=== PATIENT | male | born 1960 | race Caucasian/White ===

== ENCOUNTER 2016-12-02 15:43 | Emergency (ER) | payer BC ==
[2016-12-02 15:45] VITALS: BP 171/97; PULSE 94; RESP 24; TEMP 98; O2SAT 96
[2016-12-02 16:29] VITALS: BP 176/92; PULSE 88; RESP 28; O2SAT 96
[2016-12-02 16:51] VITALS: BP 184/94; PULSE 97; RESP 22; TEMP 98.4; O2SAT 98
[2016-12-02 16:59] VITALS: RESP 22; O2SAT 98
[2016-12-02] MEDS ORDERED: RESP: ALBUTEROL 2.5 MG/IPRATROPIUM 0.5 MG NEB (SCH) INH ONE (17:00)
[2016-12-02] MEDS ORDERED: methylPREDNISolone SOD SUCC 125 MG/2 ML VIAL IVP ONE (17:00)
--- NOTE | 2016-12-02 17:27 | PD ---
HPI Chief Complaint: Respiratory Distress Time Seen by Provider: 17:23 Travel History International Travel<30 days: No Contact w/Intl Traveler<30days: No Traveled to known affect area: No History of Present Illness HPI 55-year-old male that presents to the ED for evaluation of shortness of breath and cough. Per patient she's had symptoms since 14 November. Per patient history of having cough and runny nose on that time and he was seen by his doctor who prescribed antibiotics. Per patient he did not feel better in 2 days later he went to an urgent care where he was prescribed a different antibiotic and given some shots to make him feel improved but he states that for the past couple of days his symptoms have actually worsened and that is why he decided to come here. He states that he finished 2 rounds of antibiotics already with no relief. He denies any abdominal pain, nausea or vomiting. He states compliance with his medications and he states that he only takes a blood pressure medication. He denies using any inhalers at home. He has a remote history of smoking and states that he quit about 10 years ago. He states having some chest discomfort for more with deep breaths and with cough. Per patient and shortness of breath is exertional and gets worse when she has bad coughing spells. He has no allergies to medication. He has not seen his PCP these week. He denies any other medical problems at this time. Denies any sore throat. He does state having some congestion and states the most of his cough is dry. Not really productive PFSH Past Medical History High Cholesterol: Yes Diabetes: No Hiatal Hernia: Yes Hypertension: Yes Tetanus Vaccination: > 5 Years Influenza Vaccination: No Past Surgical History Other Surgery: Yes (HERNIA REPAIR AND CYST REMOVAL) Social History Alcohol Use: Yes (OCCAS) Tobacco Use: No Substance Use: No Allergies-Medications (Allergen,Severity, Reaction): Coded Allergies: No Known Allergies (Unverified , 12/02/16) Reported Meds & Prescriptions Reported Meds & Active Scripts Active Nebulizer 1 Mis Mis 1 Ea .ROUTE DIRECTED Albuterol Neb (Albuterol Sulfate) 2.5 Mg/0.5 Ml Neb 2.5 Mg NEB TID NEB PRN Note: The Albuterol Sulfate Inhalation Solution is concentrated and must be diluted. Read complete instructions carefully before using. Prednisone 20 Mg Tab 20 Mg PO BID Levaquin (Levofloxacin) 750 Mg Tab 750 Mg PO DAILY Review of Systems General / Constitutional: No: Fever, Chills, Weight Gain, Weight Loss, Other Eyes: No: Diploplia, Blurred Vision, Photophobia, Drainage, Redness, Foreign Body Sensation, Pain, Tearing, Blind Spots, Visual changes, Blindness, Other HENT: No: Headaches, Vertigo, Lightheadedness, Sore Throat, Rhinitis, Rhinorrhea, Congestion, Nosebleed, Neck Stiffness, Neck Pain, Masses, Gingival Bleeding, Dental Difficulties, Ear Discharge, Earache, Other Cardiovascular: Positive: Chest Pain or Discomfort Respiratory: Positive: Cough, Shortness of Breath, Wheezing, No: Sneezing, Orthopnea, Hemoptysis, Stridor, Night Sweats, Pleuritic Pain, Other Gastrointestinal: No: Nausea, Vomiting, Diarrhea, Abdominal Pain, Hematemesis, Hematochezia, Constipation, Changes in Bowel Habits, Indigestion, Dysphagia, Loss of Appetite, Other Genitourinary: No: Urgency, Frequency, Dysuria, Nocturia, Hematuria, Decreased Urinary Output, Oliguria, Hesitancy, Dribbling, Incontinence, Pelvic Pain, Flank Pain, Dyspareunia, Discharge, Dysmenorrhea, Menorrhagia, Metorrhagia, Vaginal Bleeding, Other Musculoskeletal: No: Myalgias, Arthralgias, Limited ROM, Weakness, Cramping, Edema, Pain, Atrophy, Other Skin: No Rash, No Itching, No Dryness, No Lumps, No Hives, No Change in Pigmentation, No Change in nails, No Alopecia, No Lesions, No Breast Lumps, No Breast Tenderness, No Breast Swelling, No Other Psychiatric: No: Anxiety, Depression, Suicidal Ideations, Disorder of Thought, Mood Disorder, Substance Abuse, Homicidal Ideation, Other Endocrine: No: Heat Intolerance, Cold Intolerance, Polyuria, Polydipsia, Other Hematologic/Lymphatic: No: Easy Bruising, Lymph Node Enlargement, Other Physical Exam Narrative GENERAL: Well-nourished, well-developed patient in no apparent distress. SKIN: Warm and dry. HEAD: Atraumatic. Normocephalic. EYES: Pupils equal and round reactive to light and accommodation. No scleral icterus. No injection or drainage. ENT: No nasal bleeding or discharge. Mucous membranes pink and moist. TMs are clear with no sign of infection or perforation. No mastoid tenderness. Ear canals are intact bilaterally. No lymphadenopathy. Nostril mucosa is red and moist with clear mucus noted. No sinus tenderness to palpation noted. Tonsils are not enlarged or swollen. No ulvua Deviation. Tongue is midline. NECK: Trachea midline. No JVD. No meningeal signs noted CARDIOVASCULAR: Regular rate and rhythm. RESPIRATORY: No accessory muscle use. Mild rales in the lower lung steel.. Breath sounds equal bilaterally. GASTROINTESTINAL: Abdomen soft, non-tender, nondistended. Hepatic and splenic margins not palpable. MUSCULOSKELETAL: Extremities without clubbing, cyanosis, or edema. No obvious deformities. NEUROLOGICAL: Awake and alert. No obvious cranial nerve deficits. Motor grossly within normal limits. Five out of 5 muscle strength in the arms and legs. Normal speech. PSYCHIATRIC: Appropriate mood and affect; insight and judgment normal. Data Data Last Documented VS Vital Signs Date Time Temp Pulse Resp B/P Pulse Ox O2 Delivery O2 Flow Rate FiO2 12/02/16 16:59 22 98 Room Air 12/02/16 16:51 92 12/02/16 16:51 98.4 184/94 Orders Electrocardiogram (12/02/16 16:56) Basic Metabolic Panel (Bmp) (12/02/16 16:56) Complete Blood Count With Diff (12/02/16 16:56) Chest, Single Ap (12/02/16 16:56) Iv Access Insert/Monitor (12/02/16 16:56) Oximetry (12/02/16 16:56) Methylprednisolone So Succ Inj (Solumedr (12/02/16 17:00) Albuterol-Ipratropium Neb (Duoneb Neb) (12/02/16 17:00) Influenzae A/B Antigen (12/02/16 16:58) Labs Laboratory Tests Test 12/02/16 17:05 White Blood Count 10.7 TH/MM3 Red Blood Count 3.99 MIL/MM3 Hemoglobin 12.5 GM/DL Hematocrit 37.0 % Mean Corpuscular Volume 92.7 FL Mean Corpuscular Hemoglobin 31.4 PG Mean Corpuscular Hemoglobin 33.9 % Concent Red Cell Distribution Width 12.0 % Platelet Count 252 TH/MM3 Mean Platelet Volume 8.3 FL Neutrophils (%) (Auto) 63.2 % Lymphocytes (%) (Auto) 23.4 % Monocytes (%) (Auto) 11.4 % Eosinophils (%) (Auto) 1.7 % Basophils (%) (Auto) 0.3 % Neutrophils # (Auto) 6.8 TH/MM3 Lymphocytes # (Auto) 2.5 TH/MM3 Monocytes # (Auto) 1.2 TH/MM3 Eosinophils # (Auto) 0.2 TH/MM3 Basophils # (Auto) 0.0 TH/MM3 CBC Comment DIFF FINAL Differential Comment Sodium Level 141 MEQ/L Potassium Level 4.0 MEQ/L Chloride Level 107 MEQ/L Carbon Dioxide Level 28.5 MEQ/L Anion Gap 6 MEQ/L Blood Urea Nitrogen 14 MG/DL Creatinine 1.19 MG/DL Estimat Glomerular Filtration 64 ML/MIN Rate Random Glucose 104 MG/DL Calcium Level 8.9 MG/DL MDM Medical Decision Making Medical Screen Exam Complete: Yes Emergency Medical Condition: Yes Medical Record Reviewed: Yes Interpretation(s) CBC & BMP Diagram 12/02/16 17:05 Last Impressions Chest X-Ray 12/02/16 1656 Signed Impressions: Service Date/Time: Sunday, December 02, 2016 17:10 - CONCLUSION: 1. Minimal basilar atelectasis. Adrián Squires MD Influenza negative Differential Diagnosis Bronchitis versus pneumonia versus influenza versus chronic cough versus chest discomfort Narrative Course 55-year-old male that presents to the ED for evaluation of cough and shortness of breath. Patient was properly examined and was found to have signs and symptoms consistent appears to be possible bronchitis. Patient will be given breathing treatment, labs will be drawn and chest x-ray will be done as well as with this. Labs and imaging showed no sign of acute disease other than what appears to be bronchitis. Patient was reassured. At this time I recommend trial of Levaquin, prednisone, nebulizer machine as patient already has inhalers at home. Patient was also given prescription for hydrocodone syrup. Told to follow closely with PCP. See ED for any worsening symptoms. Given note for work. Diagnosis Primary Impression: Bronchitis Patient Instructions: General Instructions Departure Forms: Tests/Procedures, Work Release Enter return to work date: Dec 08, 2016 Additional Instructions: Motrin and Tylenol for pain and fever. You can use [id number] antihistamine as well as well as Mucinex as needed for runny nose and congestion. Cough drops for cough as needed. Drink plenty of fluids. Follow-up with PCP this week See ED for worsening symptoms. Med/Other Pt SpecificInfo: Prescription(s) given Scripts Nebulizer 1 Mis Mis #1 EA .ROUTE DIRECTED Ref 0 Prov:Blu Bennett MD 12/02/16 Albuterol Neb 2.5 Mg/0.5 Ml Neb2.5 Mg NEB TID NEB PRN (SHORTNESS OF BREATH) #90 NEBULE Ref 0 Note: The Albuterol Sulfate Inhalation Solution is concentrated and must be diluted. Read complete instructions carefully before using. Prov:Blu Bennett MD 12/02/16 Prednisone 20 Mg Tab20 Mg PO BID #10 TAB Prov:Blu Bennett MD 12/02/16 Levofloxacin (Levaquin)750 Mg Mrn698 Mg PO DAILY #7 TAB Ref 0 Prov:Blu Bennett MD 12/02/16 Disposition: 01 DISCHARGE HOME Condition: Stable Adebayo Garza Dec 02, 2016 17:27
[2016-12-02 17:30] LABS: AUTOMATED NEUTROPHIL # 6.8 TH/MM3 (1.8-7.7); BASOPHIL % 0.3 % (0.0-2.0); EOSINOPHIL # 0.2 TH/MM3 (0-0.4); EOSINOPHIL % 1.7 % (0.0-4.0); HEMO FLAGS DIFF FINAL; LYMPH % 23.4 % (9.0-44.0); LYMPHOCYTE # 2.5 TH/MM3 (1.0-4.8); MEAN CELL VOLUME 92.7 FL (80.0-100.0); MEAN CORPUSCULAR HEMOGLOBIN 31.4 PG (27.0-34.0); MEAN CORPUSCULAR HGB CONC 33.9 % (32.0-36.0); MONO % 11.4 % (0.0-8.0); NEUT % 63.2 % (16.0-70.0); PLATELET COUNT 252 TH/MM3 (150-450); RED BLOOD COUNT 3.99 MIL/MM3 (4.50-5.90); WHITE BLOOD COUNT 10.7 TH/MM3 (4.0-11.0)
--- NOTE | 2016-12-02 17:37 | RADRPT ---
EXAM DATE/TIME: 12/02/2016 17:10 [facility] COMPARISON: No previous studies available for comparison. INDICATIONS : Cough and wheezing for the past few days. MEDICAL HISTORY : None. SURGICAL HISTORY : None. ENCOUNTER: Initial ACUITY: 3 days PAIN SCORE: 5/10 LOCATION: Bilateral chest FINDINGS: Minimal basal atelectasis. No focal consolidation or effusion. Heart size mildly enlarged. No pneumot horax. CONCLUSION: 1. Minimal basilar atelectasis. Adrián Squires MD on December 02, 2016 at 17:35 Board Certified Radiologist. This report was verified electronically.
[2016-12-02 18:06] LABS: BICARBONATE 28.5 MEQ/L (21.0-32.0)
[2016-12-02] MEDS ORDERED: LEVA750T PO (18:20)
[2016-12-02] MEDS ORDERED: ALBU.5I NEB (18:20)
[2016-12-02] MEDS ORDERED: PRED20 PO (18:20)
[2016-12-02] MEDS ORDERED: NEBULIZER1 MI1 (18:20)
[2016-12-02] MEDS ORDERED: HYDR1SOL20 PO (18:26)
[2016-12-02 19:16] VITALS: BP 167/86; PULSE 92; RESP 20; O2SAT 94
--- NOTE | 2016-12-03 14:50 | EKG ---
Date Performed: 12/02/2016 Time Performed: 17:31:06 PTAGE: 55 years EKG: Sinus rhythm NONSPECIFIC T-WAVE ABNORMALITY BORDERLINE ECG NO PREVIOUS TRACING DOCTOR: Toney Fulton Interpretating Date/Time 12/03/2016 14:47:14
== END 2016-12-02 19:25 | disposition home or self-care (01) ==
LOC: NEPE 15:43
DX: J40 Bronchitis, not specified as acute or chronic (principal); R94.31 Abnormal electrocardiogram [ECG] [EKG]; I10 Essential (primary) hypertension; E78.00 Pure hypercholesterolemia, unspecified; Z87.891 Personal history of nicotine dependence
CPT/HCPCS: 71010; 80048; 85025; 87804; 93005; 94664; 96374; 99285; J2930

== ENCOUNTER 2017-11-16 19:32 | Inpatient (IN) | payer BC ==
[~2017-11-16] VITALS: Ht 170.2 cm; Wt 80.5 kg
[~2017-11-16 19:32] MED LIST: INDO25CA PO; PRED20 PO
[2017-11-16 20:40] VITALS: BP 146/97; PULSE 124; RESP 12; TEMP 99; O2SAT 97
[2017-11-16] MEDS ORDERED: blood pressure (21:53)
[2017-11-16] MEDS ORDERED: LOVA10TA PO (21:53)
--- NOTE | 2017-11-16 22:11 | PD ---
HPI Chief Complaint: Respiratory Symptoms Time Seen by Provider: 21:51 Travel History International Travel<30 days: No Contact w/Intl Traveler<30days: No Traveled to known affect area: No History of Present Illness HPI 56-year-old male complains of weight gain, the whole body swelling, coughing congestion and shortness of breath. Patient states the symptoms started about 2 weeks ago. Patient states that he status post left knee arthroscopic surgery 2 weeks ago for meniscus injury. Patient states that he has increasing weight gain and body swelling up for the past 2 weeks. Patient states that the cough is persistent dry cough and was at night. Patient has aching headache. Patient denies any neck pain. Patient denies any chest pain. Patient states he has shortness of breath. Patient states that he has abdominal bloating. Patient denies any dysuria frequency. Patient denies any nausea vomiting diarrhea. Patient states that he has a couple drinks of alcohol a day. Patient denies any history of hepatitis. Patient has history hypertension and hyperlipidemia. PFSH Past Medical History High Cholesterol: Yes Diabetes: No Hiatal Hernia: Yes Hypertension: Yes Immunizations Current: No Past Surgical History Other Surgery: Yes (HERNIA REPAIR AND CYST REMOVAL) Social History Alcohol Use: Yes (OCCAS) Tobacco Use: No Substance Use: No Allergies-Medications (Allergen,Severity, Reaction): Coded Allergies: No Known Allergies (Unverified Allergy, Unknown, 11/16/17) Reported Meds & Prescriptions Reported Meds & Active Scripts Active Reported [blood pressure] Lovastatin 10 Mg Tab 10 Mg PO DAILY Review of Systems General / Constitutional: No: Fever Eyes: No: Visual changes HENT: Positive: Headaches Cardiovascular: No: Chest Pain or Discomfort Respiratory: Positive: Cough, Shortness of Breath Gastrointestinal: Positive: Abdominal Pain Genitourinary: No: Dysuria Musculoskeletal: No: Pain Skin: No Rash Neurologic: No: Weakness Psychiatric: No: Depression Endocrine: No: Polydipsia Hematologic/Lymphatic: No: Easy Bruising Physical Exam Narrative GENERAL: Well-nourished, well-developed patient. SKIN: Focused skin assessment warm/dry. HEAD: Normocephalic. EYES: No scleral icterus. No injection or drainage. NECK: Supple, trachea midline. No JVD or lymphadenopathy. CARDIOVASCULAR: Regular rate and rhythm without murmurs, gallops, or rubs. RESPIRATORY: Breath sounds equal bilaterally. No accessory muscle use. Few rhonchi at the bases. GASTROINTESTINAL: Abdomen soft, distended. Active bowel sounds. Patient has mild to moderate tenderness in palpation right upper quadrant of the abdomen. No rebound tenderness. No mass. MUSCULOSKELETAL: No cyanosis. Patient had +1-+2 pitting edema lower extremity. BACK: Nontender without obvious deformity. No CVA tenderness. Neurologic exam normal. Data Data Last Documented VS Vital Signs Date Time Temp Pulse Resp B/P (MAP) Pulse Ox O2 Delivery O2 Flow Rate FiO2 11/16/17 23:06 20 11/16/17 20:40 99.0 124 97 Orders Orders Electrocardiogram (11/16/17 21:58) Complete Blood Count With Diff (11/16/17 21:58) Comprehensive Metabolic Panel (11/16/17 21:58) B-Type Natriuretic Peptide (11/16/17 21:58) Prothrombin Time / Inr (Pt) (11/16/17 21:58) Act Partial Throm Time (Ptt) (11/16/17 21:58) Lipase (11/16/17 21:58) Urinalysis - C+S If Indicated (11/16/17 21:58) Ammonia (11/16/17 21:58) Thyroid Stimulating Hormone (11/16/17 21:58) Chest, Single Ap (11/16/17 21:58) Iv Access Insert/Monitor (11/16/17 21:58) Ecg Monitoring (11/16/17 21:58) Oximetry (11/16/17 21:58) Ct Abd/Pel W Iv Contrast(Rout) (11/16/17 23:03) Ct Pulmonary Angiogram (11/16/17 23:03) Iohexol 350 Inj (Omnipaque 350 Inj) (11/17/17 00:24) Sodium Chlor 0.9% 1000 Ml Inj (Ns 1000 M (11/17/17 01:00) Piperacil-Tazo 3.375 Gm Premix (Zosyn 3. (11/17/17 01:00) Sodium Chloride 0.9% Flush (Ns Flush) (11/17/17 01:15) Famotidine Inj (Pepcid Inj) (11/17/17 01:15) Us Abdomen Gallbladder (11/17/17 01:25) Consult General Surgery (11/17/17 ) Admit Order (Ed Use Only) (11/17/17 01:40) Labs Laboratory Tests Test 11/16/17 22:10 White Blood Count 10.8 TH/MM3 Red Blood Count 4.30 MIL/MM3 Hemoglobin 13.6 GM/DL Hematocrit 40.3 % Mean Corpuscular Volume 93.6 FL Mean Corpuscular Hemoglobin 31.6 PG Mean Corpuscular Hemoglobin Concent 33.7 % Red Cell Distribution Width 12.6 % Platelet Count 189 TH/MM3 Mean Platelet Volume 8.4 FL Neutrophils (%) (Auto) 62.8 % Lymphocytes (%) (Auto) 24.8 % Monocytes (%) (Auto) 9.6 % Eosinophils (%) (Auto) 2.1 % Basophils (%) (Auto) 0.7 % Neutrophils # (Auto) 6.8 TH/MM3 Lymphocytes # (Auto) 2.7 TH/MM3 Monocytes # (Auto) 1.0 TH/MM3 Eosinophils # (Auto) 0.2 TH/MM3 Basophils # (Auto) 0.1 TH/MM3 CBC Comment DIFF FINAL Differential Comment Prothrombin Time 12.0 SEC Prothromb Time International Ratio 1.2 RATIO Activated Partial Thromboplast Time 25.0 SEC Blood Urea Nitrogen 19 MG/DL Creatinine 1.02 MG/DL Random Glucose 88 MG/DL Total Protein 7.6 GM/DL Albumin 3.9 GM/DL Calcium Level 8.7 MG/DL Alkaline Phosphatase 124 U/L Aspartate Amino Transf (AST/SGOT) 30 U/L Alanine Aminotransferase (ALT/SGPT) 42 U/L Total Bilirubin 0.9 MG/DL Sodium Level 142 MEQ/L Potassium Level 4.3 MEQ/L Chloride Level 108 MEQ/L Carbon Dioxide Level 26.8 MEQ/L Anion Gap 7 MEQ/L Estimat Glomerular Filtration Rate 76 ML/MIN Ammonia 31 MCMOL/L B-Type Natriuretic Peptide 98 PG/ML Lipase 159 U/L Thyroid Stimulating Hormone 3rd Gen 2.670 uIU/ML MDM Medical Decision Making Medical Screen Exam Complete: Yes Emergency Medical Condition: Yes Interpretation(s) 23:09 PM. EKG shows atrial fibrillation with rate 96. Chest x-ray shows no acute consolidation. CBC within normal limits. CMP with BUN of 19. Alkaline phosphatase 124. BNP 98. Ammonia 31. TSH normal. Differential Diagnosis Differential diagnosis including hepatitis, CHF, fluid overload, bronchitis, pneumonia, PE. Narrative Course 56-year-old male with generalized edema, weight gain, coughing congestion, shortness of breath. On examination patient does have right upper quadrant abdominal pain. Normal saline solution 70 cc an hour. Pepcid 20 mg IV. Zosyn 3.375 g IV. I spoke with Dr. Wu, general surgeon market intelligence consultant. Spoke with Dr. Proctor. Will admit to medical service. Diagnosis Primary Impression: Acute cholecystitis Viral Bach MD Nov 16, 2017 22:11
[2017-11-16 22:22] LABS: AUTOMATED NEUTROPHIL # 6.8 TH/MM3 (1.8-7.7); BASOPHIL # 0.1 TH/MM3 (0-0.2); BASOPHIL % 0.7 % (0.0-2.0); EOSINOPHIL # 0.2 TH/MM3 (0-0.4); EOSINOPHIL % 2.1 % (0.0-4.0); HEMATOCRIT 40.3 % (39.0-51.0); HEMOGLOBIN 13.6 GM/DL (13.0-17.0); LYMPH % 24.8 % (9.0-44.0); LYMPHOCYTE # 2.7 TH/MM3 (1.0-4.8); MEAN CELL VOLUME 93.6 FL (80.0-100.0); MEAN CORPUSCULAR HEMOGLOBIN 31.6 PG (27.0-34.0); MEAN CORPUSCULAR HGB CONC 33.7 % (32.0-36.0); MEAN PLATELET VOLUME 8.4 FL (7.0-11.0); MONO % 9.6 % (0.0-8.0); NEUT % 62.8 % (16.0-70.0); PLATELET COUNT 189 TH/MM3 (150-450); RED CELL DISTRIBUTION WIDTH 12.6 % (11.6-17.2); WHITE BLOOD COUNT 10.8 TH/MM3 (4.0-11.0)
[2017-11-16 22:33] LABS: INTERNATIONAL NORMALIZED RATIO 1.2 RATIO
[2017-11-16 22:37] LABS: ALBUMIN 3.9 GM/DL (3.4-5.0); AST (GOT) 30 U/L (15-37); BICARBONATE 26.8 MEQ/L (21.0-32.0); BLOOD UREA NITROGEN 19 MG/DL (7-18); CALCIUM 8.7 MG/DL (8.5-10.1); CHLORIDE 108 MEQ/L (98-107); CREATININE 1.02 MG/DL (0.60-1.30); GLOMERULAR FILTRATION RATE 76 ML/MIN (>89); GLUCOSE,RANDOM 88 MG/DL (74-106); SODIUM (NA) 142 MEQ/L (136-145)
[2017-11-16 22:38] LABS: ALT (GPT) 42 U/L (12-78)
--- NOTE | 2017-11-16 22:38 | RADRPT ---
EXAM DATE/TIME: 11/16/2017 22:13 [facility] COMPARISON: CHEST SINGLE AP, December 02, 2016, 17:10. INDICATIONS : Cough, shortness of breath, and chest pain. MEDICAL HISTORY : None. SURGICAL HISTORY : None. ENCOUNTER: Initial ACUITY: 1 week PAIN SCORE: 0/10 LOCATION: chest FINDINGS: A single view of the chest demonstrates the lungs to be symmetrically aerated without evidence of mas s, infiltrate or effusion. The cardiomediastinal contours are unremarkable. Osseous structures are intact. CONCLUSION: The lungs are clear. Francisco Kapadia MD on November 16, 2017 at 22:37 Board Certified Radiologist. This report was verified electronically.
[2017-11-16 22:48] LABS: ALKALINE PHOSPHATASE 124 U/L (45-117); TOTAL BILIRUBIN ADULT 0.9 MG/DL (0.2-1.0); TOTAL PROTEIN 7.6 GM/DL (6.4-8.2)
[2017-11-16 23:06] VITALS: RESP 20
[2017-11-17] VITALS (7 sets, daily range): BP systolic 112–150; BP diastolic 73–98; PULSE 52–101; RESP 17–18; TEMP 95.3–96.8; O2SAT 96–99
[2017-11-17] MEDS ORDERED: IOHEXOL 350 MG/ML 10 ML VIAL (for RAD DIAG) IVCONTRAST ONE (00:24)
--- NOTE | 2017-11-17 00:48 | RADRPT ---
EXAM DATE/TIME: 11/17/2017 00:19 [facility] COMPARISON: No previous studies available for comparison. INDICATIONS : Short of breath. IV CONTRAST: 100 cc Omnipaque 350 (iohexol) IV ; Cumulative dose for multiple exams. RADIATION DOSE: 8.93 CTDIvol (mGy) MEDICAL HISTORY : Hypertension. Hernia, hiatal. SURGICAL HISTORY : Hernia repair. ENCOUNTER: Initial ACUITY: 1 day PAIN SCALE: 0/10 LOCATION: chest TECHNIQUE: Volumetric scanning of the chest was performed using a pulmonary embolism protocol MIP images were re constructed. Using automated exposure control and adjustment of the mA and/or kV according to patien t size, radiation dose was kept as low as reasonably achievable to obtain optimal diagnostic quality images. DICOM format image data is available electronically for review and comparison. Follow-up recommendations for detected pulmonary nodules are based at a minimum on nodule size and pa tient risk factors according to Fleischner Society Guidelines. FINDINGS: PULMONARY ARTERIES: No filling defects are seen in the pulmonary arteries through the segmental level. LUNGS: There is no consolidation or pneumothorax . No concerning pulmonary nodule is visualized. PLEURAE: There is no pleural thickening or pleural effusion. MEDIASTINUM: There is good visualization of the great vessels of the middle mediastinum. No evidence of pathologi c appearing mediastinal or hilar adenopathy/mass. Pericardial calcification is noted. No pericardial effusion. MUSCULOSKELETAL: Within normal limits for patient age. MISCELLANEOUS: The visualized upper abdominal organs demonstrate no acute abnormality. CONCLUSION: 1. No pulmonary embolus or other acute cardiopulmonary disease demonstrated. 2. Pericardial calcification, usually the sequela of previous pericarditis. There does seem to be ankit e associated mild bandlike mass effect on the heart, especially the right atrium, for example series 301 image 84. No significant pericardial effusion demonstrated to suggest acute pericarditis. All Camacho MD on November 17, 2017 at 0:43 Board Certified Radiologist. This report was verified electronically.
--- NOTE | 2017-11-17 00:51 | RADRPT ---
EXAM DATE/TIME: 11/17/2017 00:19 [facility] COMPARISON: No previous studies available for comparison. INDICATIONS : Abdominal pain. IV CONTRAST: 100 cc Omnipaque 350 (iohexol) IV ; Cumulative dose for multiple exams. ORAL CONTRAST: No oral contrast ingested. RADIATION DOSE: 18.29 CTDIvol (mGy) MEDICAL HISTORY : Hypertension. Hernia, hiatal. SURGICAL HISTORY : Hernia repair. ENCOUNTER: Initial ACUITY: 1 day PAIN SCALE: 5/10 LOCATION: abdomen TECHNIQUE: Volumetric scanning of the abdomen and pelvis was performed. Using automated exposure control and ad justment of the mA and/or kV according to patient size, radiation dose was kept as low as reasonably achievable to obtain optimal diagnostic quality images. DICOM format image data is available electro nically for review and comparison. FINDINGS: LOWER LUNGS: The visualized lower lungs are clear. LIVER: Homogeneous density without lesion. There is no dilation of the biliary tree. There is wall thickeni ng of the gallbladder and robust mucosal enhancement. The fat surrounding the gallbladder is markedly indurated, for example series 3 or 4 image 34.. SPLEEN: Normal size without lesion. PANCREAS: Within normal limits. KIDNEYS: 5 mm nonobstructing stone right lower pole. ADRENAL GLANDS: Within normal limits. VASCULAR: There is no aortic aneurysm. BOWEL/MESENTERY: The stomach, small bowel, and colon demonstrate no acute abnormality. There is no free intraperitone al air or fluid. The appendix is well-visualized, normal. ABDOMINAL WALL: Within normal limits. RETROPERITONEUM: There is no lymphadenopathy. BLADDER: No wall thickening or mass. REPRODUCTIVE: Within normal limits. INGUINAL: There is no lymphadenopathy or hernia. MUSCULOSKELETAL: No acute bony abnormality demonstrated. CONCLUSION: CT findings of acute cholecystitis in the proper clinical setting. No other acute abnormalities are d emonstrated. There is a nonobstructing stone of the right kidney. The appendix is normal. All Camacho MD on November 17, 2017 at 0:47 Board Certified Radiologist. This report was verified electronically.
[2017-11-17] MEDS ORDERED: PIPERACIL-TAZO 3.375 GM PREMIX 50 ML IV ONE (01:00)
[2017-11-17] MEDS ORDERED: SODIUM CHLOR 0.9% 1000 ML INJ 1,000 ML IV SCH (01:00)
[2017-11-17] MEDS ORDERED: SODIUM CHLORIDE 0.9% FLUSH 10 ML FLUSH IV FLUSH PRN ×2 (01:15→04:15)
[2017-11-17] MEDS ORDERED: FAMOTIDINE 20 MG/2 ML VIAL IV PUSH ONE (01:15)
--- NOTE | 2017-11-17 02:28 | RADRPT ---
EXAM DATE/TIME: 11/17/2017 02:06 [facility] COMPARISON: No previous studies available for comparison. INDICATIONS : Right upper quadrant pain. MEDICAL HISTORY : Hypercholesterolemia. Hypertension. Hiatal hernia. SURGICAL HISTORY : Left knee meniscus surgery. Hernia repair. Cyst removal. ENCOUNTER: Initial ACUITY: 1 week PAIN SCORE: 7/10 LOCATION: Right upper quadrant MEASUREMENTS: LIVER: 15.2 cm length COMMON DUCT: 5 mm RIGHT KIDNEY: 11.6 x 4.5 x 5.2 cm FINDINGS: LIVER: Normal echotexture without focal lesion or ductal dilatation. COMMON DUCT: No intraluminal mass or stone visualized. GALLBLADDER: Marked wall thickening, nearly 10 mm maximum. No stones demonstrated. No organized pericholecystic fl uid. PANCREAS: The visualized portions are within normal limits. RIGHT KIDNEY: No evidence of hydronephrosis, stone, or mass. CONCLUSION: Marked gallbladder wall thickening. No stones or evidence of biliary obstruction. All Camacho MD on November 17, 2017 at 2:26 Board Certified Radiologist. This report was verified electronically.
[2017-11-17] MEDS ORDERED: MAGNESIUM HYDROXIDE SUSP 30 ML CUP PO PRN (04:15)
[2017-11-17] MEDS ORDERED: NALOXONE HCL 0.4 MG/ML AMP IV PUSH PRN (04:15)
[2017-11-17] MEDS ORDERED: SENNOSIDES 8.6 MG TAB PO PRN (04:15)
[2017-11-17] MEDS ORDERED: ONDANSETRON HCL 4 MG/2 ML VIAL IVP PRN (04:15)
[2017-11-17] MEDS ORDERED: LACTULOSE SYRUP 20 GM/30 ML CUP PO PRN (04:15)
[2017-11-17] MEDS ORDERED: BISACODYL 10 MG SUPP RECTAL PRN (04:15)
[2017-11-17] MEDS: D5-1/2 NS + KCL 20 MEQ INJ 1,000 ML IV SCH ×3 (04:50→16:59)
[2017-11-17 05:46] LABS: AUTOMATED NEUTROPHIL # 5.6 TH/MM3 (1.8-7.7); BASOPHIL # 0.1 TH/MM3 (0-0.2); BASOPHIL % 0.7 % (0.0-2.0); EOSINOPHIL # 0.2 TH/MM3 (0-0.4); EOSINOPHIL % 2.5 % (0.0-4.0); HEMATOCRIT 37.2 % (39.0-51.0); HEMOGLOBIN 12.9 GM/DL (13.0-17.0); LYMPH % 23.8 % (9.0-44.0); LYMPHOCYTE # 2.1 TH/MM3 (1.0-4.8); MEAN CELL VOLUME 93.1 FL (80.0-100.0); MEAN CORPUSCULAR HEMOGLOBIN 32.2 PG (27.0-34.0); MEAN CORPUSCULAR HGB CONC 34.6 % (32.0-36.0); MEAN PLATELET VOLUME 8.4 FL (7.0-11.0); MONO % 9.1 % (0.0-8.0); MONOCYTE # 0.8 TH/MM3 (0-0.9); NEUT % 63.9 % (16.0-70.0); PLATELET COUNT 174 TH/MM3 (150-450); RED BLOOD COUNT 3.99 MIL/MM3 (4.50-5.90); RED CELL DISTRIBUTION WIDTH 12.5 % (11.6-17.2); WHITE BLOOD COUNT 8.7 TH/MM3 (4.0-11.0)
[2017-11-17 06:05] LABS: ALBUMIN 3.6 GM/DL (3.4-5.0); AST (GOT) 28 U/L (15-37); BICARBONATE 26.9 MEQ/L (21.0-32.0); BLOOD UREA NITROGEN 17 MG/DL (7-18); CALCIUM 8.5 MG/DL (8.5-10.1); CHLORIDE 110 MEQ/L (98-107); CREATININE 1.01 MG/DL (0.60-1.30); GLOMERULAR FILTRATION RATE 77 ML/MIN (>89); GLUCOSE,RANDOM 100 MG/DL (74-106); SODIUM (NA) 143 MEQ/L (136-145)
[2017-11-17 06:09] LABS: ALKALINE PHOSPHATASE 115 U/L (45-117); ALT (GPT) 41 U/L (12-78); TOTAL BILIRUBIN ADULT 1.4 MG/DL (0.2-1.0); TOTAL PROTEIN 7.1 GM/DL (6.4-8.2)
[2017-11-17] MEDS: SODIUM CHLORIDE 0.9% FLUSH 10 ML FLUSH IV FLUSH SCH ×2 (08:46→21:00)
[2017-11-17] MEDS: DOCUSATE SODIUM 50 MG/SENNA 8.6 MG TAB PO SCH ×2 (08:47→21:00)
--- NOTE | 2017-11-17 09:05 | PD.CONS ---
HPI Service General surgery Consult Requested By Dr. Bach Reason for Consult Possible cholecystitis Primary Care Physician Kevyn Proctor MD History of Present Illness 56 yo M c/o "retaining water" for two weeks. This is his primary and really his only complaint. He has tried to decrease salt in his diet. He had left knee surgery in [place] two weeks ago. He tells me he had an outpatient LLE u /s to r/o DVT which was normal. Denies abdominal pain, nausea, vomiting, or problems eating. He has a h/o hemochromatosis and says that he donates blood regularly to keep it under control. CTA of thorax was normal. CT a/p showed thickened gallbladder wall. U/s gallbladder shows thickened wall to 1 cm with no stones. Bili this am 1.4. No previous abdominal surgeries. Review of Systems Constitutional: DENIES: Fever, Chills Eyes: DENIES: Eye inflammation, Eye pain Ears, nose, mouth, throat: DENIES: Throat pain, Hoarseness Respiratory: DENIES: Cough Cardiovascular: COMPLAINS OF: Lower Extremity Edema, DENIES: Chest pain, Palpitations Gastrointestinal: DENIES: Abdominal pain, Diarrhea, Nausea, Vomiting Musculoskeletal: DENIES: Back pain, Neck pain Integumentary: DENIES: Pruritus, Rash Neurologic: DENIES: Paresthesias, Seizures Past Family Social History Past Medical History Hemochromatosis HTN Hyperlipidemia Past Surgical History Left knee surgery Reported Medications Reported Meds & Active Scripts Active Reported [blood pressure] Lovastatin 10 Mg Tab 10 Mg PO DAILY Allergies: Coded Allergies: No Known Allergies (Unverified Allergy, Unknown, 11/16/17) Active Ordered Medications Current Medications Medications (Trade) Dose Ordered Sig/Masha Route Start Time Stop Time Status Last Admin Potassium Chloride/Dextrose/ Sod Cl 1,000 ml @ 100 mls/hr Q10H IV 11/17/17 04:14 11/17/17 04:50 (NS Flush) 2 ml UNSCH PRN IV FLUSH 11/17/17 04:15 (NS Flush) 2 ml BID IV FLUSH 11/17/17 09:00 (Zofran Inj) 4 mg Q6H PRN IVP 11/17/17 04:15 (Narcan Inj) 0.4 mg UNSCH PRN IV PUSH 11/17/17 04:15 (Tayler-Colace) 1 tab BID PO 11/17/17 09:00 (Milk Of Magnesia Liq) 30 ml Q12H PRN PO 11/17/17 04:15 (Senokot) 17.2 mg Q12H PRN PO 11/17/17 04:15 (Dulcolax Supp) 10 mg DAILY PRN RECTAL 11/17/17 04:15 (Lactulose Liq) 30 ml DAILY PRN PO 11/17/17 04:15 Family History Noncontributory Social History Works at [employer]. Occ ETOH no tobacco or drug use. Physical Exam Vital Signs Vital Signs Date Time Temp Pulse Resp B/P (MAP) Pulse Ox O2 Delivery O2 Flow Rate FiO2 11/17/17 08:00 96.2 83 18 126/74 (91) 98 11/17/17 06:23 52 11/17/17 04:57 85 11/17/17 04:00 96.3 85 18 138/73 (94) 97 11/16/17 23:06 20 11/16/17 20:40 99.0 124 12 146/97 (113) 97 Physical Exam GENERAL: Awake and alert. No acute distress. Cooperative. HEAD: Normocephalic. Atraumatic. EYES: Pupils equal round and reactive to light bilaterally. No scleral icterus. ENT: Moist oral mucosa. NECK: Trachea midline. CHEST: Lungs clear to auscultation bilaterally with no wheezing or rhonchi. No respiratory distress. CARDIOVASCULAR: Regular rate and rhythm. ABDOMEN: Mildly distended. Moderate tenderness in the right upper quadrant. Otherwise soft and nontender. EXTREMITIES: Bilateral lower extremity edema. Left knee swelling. SKIN: Warm, dry, nonjaundiced. Laboratory Laboratory Tests Test 11/16/17 22:10 11/17/17 05:20 White Blood Count 10.8 8.7 Red Blood Count 4.30 3.99 Hemoglobin 13.6 12.9 Hematocrit 40.3 37.2 Mean Corpuscular Volume 93.6 93.1 Mean Corpuscular Hemoglobin 31.6 32.2 Mean Corpuscular Hemoglobin Concent 33.7 34.6 Red Cell Distribution Width 12.6 12.5 Platelet Count 189 174 Mean Platelet Volume 8.4 8.4 Neutrophils (%) (Auto) 62.8 63.9 Lymphocytes (%) (Auto) 24.8 23.8 Monocytes (%) (Auto) 9.6 9.1 Eosinophils (%) (Auto) 2.1 2.5 Basophils (%) (Auto) 0.7 0.7 Neutrophils # (Auto) 6.8 5.6 Lymphocytes # (Auto) 2.7 2.1 Monocytes # (Auto) 1.0 0.8 Eosinophils # (Auto) 0.2 0.2 Basophils # (Auto) 0.1 0.1 CBC Comment DIFF FINAL DIFF FINAL Differential Comment Prothrombin Time 12.0 Prothromb Time International Ratio 1.2 Activated Partial Thromboplast Time 25.0 Blood Urea Nitrogen 19 17 Creatinine 1.02 1.01 Random Glucose 88 100 Total Protein 7.6 7.1 Albumin 3.9 3.6 Calcium Level 8.7 8.5 Alkaline Phosphatase 124 115 Aspartate Amino Transf (AST/SGOT) 30 28 Alanine Aminotransferase (ALT/SGPT) 42 41 Total Bilirubin 0.9 1.4 Sodium Level 142 143 Potassium Level 4.3 4.1 Chloride Level 108 110 Carbon Dioxide Level 26.8 26.9 Anion Gap 7 6 Estimat Glomerular Filtration Rate 76 77 Ammonia 31 B-Type Natriuretic Peptide 98 Lipase 159 Thyroid Stimulating Hormone 3rd Gen 2.670 Magnesium Level 2.0 Result Diagram: 11/17/1751911/17/17519 Imaging Last Impressions Gall Bladder Ultrasound 11/17/17 0125 Signed Impressions: Service Date/Time: Friday, November 17, 2017 02:06 - CONCLUSION: Marked gallbladder wall thickening. No stones or evidence of biliary obstruction. All Camacho MD CT Angiography 11/16/172302 Signed Impressions: Service Date/Time: Friday, November 17, 2017 00:19 - CONCLUSION: 1. No pulmonary embolus or other acute cardiopulmonary disease demonstrated. 2. Pericardial calcification, usually the sequela of previous pericarditis. There does seem to be some associated mild bandlike mass effect on the heart, especially the right atrium, for example series 301 image 84. No significant pericardial effusion demonstrated to suggest acute pericarditis. All Camacho MD Abdomen/Pelvis CT 11/16/177 Signed Impressions: Service Date/Time: Friday, November 17, 2017 00:19 - CONCLUSION: CT findings of acute cholecystitis in the proper clinical setting. No other acute abnormalities are demonstrated. There is a nonobstructing stone of the right kidney. The appendix is normal. All Camacho MD Chest X-Ray 11/16/17 0034 Signed Impressions: Service Date/Time: Thursday, November 16, 2017 22:13 - CONCLUSION: The lungs are clear. Francisco Kapadia MD Assessment and Plan Assessment and Plan 56 yo M possible cholecystitis based on exam and imaging but completely asymptomatic and complaint is fluid retention. Will place on IV antibiotics for now and consider cholecystectomy. Freddy Wu MD Nov 17, 2017 09:05
--- NOTE | 2017-11-17 09:58 | HHI.HP ---
History of Present Illness Service INTERNAL MEDICINE Primary Care Physician KEVYN PROCTOR MD Admission Diagnosis ACUTE CHOLECYSTITIS. NEW ATRIAL FIBRILLATION. Diagnoses: History of Present Illness This patient is a 56 year old male who has been with the presence of fluid retention that he states started about one week prior to a surgical arthroscopic procedure for his left knee about two weeks ago. He initially noticed that his legs were swollen more than usual and he started to lower his salt intake. He continued to have recurrence with the appearance that his face appeared to be somewhat swollen as well. He states that it appeared to have worsened after having surgery on the left knee. He states that it appeared to be worsening and persistent. It is for that reason he came to the [facility] Emergency Room for evaluation. He further mentions that he has had a persistent cough that has appeared to have worsened over the past week. He denies any shortness of breath, chest pain abdominal pain, nausea, emesis or palpitations. In the process of his assessment in the emergency room , he has findings that are consistent with an acute cholecystitis and new atrial fibrillation. He is admitted to the hospital for further assessment and treatment in this regard. Review of Systems Constitutional: COMPLAINS OF: Weight gain Respiratory: COMPLAINS OF: Cough Cardiovascular: COMPLAINS OF: Lower Extremity Edema Past Family Social History Allergies: Coded Allergies: No Known Allergies (Unverified Allergy, Unknown, 11/16/17) Past Medical History 1. Hypertension. 2. Hyperlipidemia. 3. Hemochromatosis. 4. Psoriasis. 5. Kidney Stones. 6. Osteoarthritis. 7. Erectile Dysfunction. 8. Smoking-discontinued in 2004. Past Surgical History 1. Cystoscopy. 2. Colonoscopy. 3. Arthroscopic Surgery of Left Knee. Reported Medications 1. Lovastatin 40 mg daily. 2. Amlodipine 5 mg daily. 3. Aspirin 81 mg daily. Family History He does not fully know the history of illnesses of his family members. Social History He was born [place] the [place]. He is of Single status. He finished high school and attended two years of college. He now works at a [employer]. He is a nonsmoker currently as he discontinued use of cigarettes in 2004. Prior to this, he smoked less than a 1/2 pack of cigarettes a day since his 's. Alcohol intake is reported as 2 drinks a day. There is no use of recreational drugs. Physical Exam Vital Signs Vital Signs Date Time Temp Pulse Resp B/P (MAP) Pulse Ox O2 Delivery O2 Flow Rate FiO2 11/17/17 08:00 96.2 83 18 126/74 (91) 98 11/17/17 06:23 52 11/17/17 04:57 85 11/17/17 04:00 96.3 85 18 138/73 (94) 97 11/16/17 23:06 20 11/16/17 20:40 99.0 124 12 146/97 (113) 97 Physical Exam GENERAL: This is a well-nourished, well-developed patient who is in no apparent distress. SKIN: No rashes, ecchymoses or lesions. Skin is warm and dry. HEAD: Atraumatic. Normocephalic. No temporal or scalp tenderness. EYES: Pupils equal round and reactive. Extraocular motions intact. No scleral icterus. No injection or drainage. ENT: Nose without bleeding, purulent drainage or septal hematoma. Throat without erythema, tonsillar hypertrophy or exudate. Uvula midline. Airway patent. NECK: Trachea midline. No JVD, carotid bruits or lymphadenopathy. Supple, nontender and no meningeal signs. CARDIOVASCULAR: Rhythm is irregular with the rate controlled at this time. There is no significant cardiac murmur, gallop, S3, S4 or rub. RESPIRATORY: Clear to auscultation bilaterally. Breath sounds equal bilaterally. No wheezes, rales, or rhonchi. GASTROINTESTINAL: Abdomen soft, non-tender, nondistended. No hepato- splenomegaly or palpable masses. No guarding or rebound. MUSCULOSKELETAL: Extremities without clubbing, cyanosis or edema. There is tenderness mildly at the left knee joint with mild swelling at the site as well. There is moderate edema noted for both lower extremities left slightly greater than the right. There is no calf tenderness. Negative Homans sign bilaterally. NEUROLOGICAL: Awake and alert. Cranial nerves II through XII intact. Motor and sensory grossly within normal limits. Five out of 5 muscle strength in all muscle groups. Normal speech. Laboratory Laboratory Tests Test 11/16/17 22:10 11/17/17 05:20 White Blood Count 10.8 8.7 Red Blood Count 4.30 3.99 Hemoglobin 13.6 12.9 Hematocrit 40.3 37.2 Mean Corpuscular Volume 93.6 93.1 Mean Corpuscular Hemoglobin 31.6 32.2 Mean Corpuscular Hemoglobin Concent 33.7 34.6 Red Cell Distribution Width 12.6 12.5 Platelet Count 189 174 Mean Platelet Volume 8.4 8.4 Neutrophils (%) (Auto) 62.8 63.9 Lymphocytes (%) (Auto) 24.8 23.8 Monocytes (%) (Auto) 9.6 9.1 Eosinophils (%) (Auto) 2.1 2.5 Basophils (%) (Auto) 0.7 0.7 Neutrophils # (Auto) 6.8 5.6 Lymphocytes # (Auto) 2.7 2.1 Monocytes # (Auto) 1.0 0.8 Eosinophils # (Auto) 0.2 0.2 Basophils # (Auto) 0.1 0.1 CBC Comment DIFF FINAL DIFF FINAL Differential Comment Prothrombin Time 12.0 Prothromb Time International Ratio 1.2 Activated Partial Thromboplast Time 25.0 Blood Urea Nitrogen 19 17 Creatinine 1.02 1.01 Random Glucose 88 100 Total Protein 7.6 7.1 Albumin 3.9 3.6 Calcium Level 8.7 8.5 Alkaline Phosphatase 124 115 Aspartate Amino Transf (AST/SGOT) 30 28 Alanine Aminotransferase (ALT/SGPT) 42 41 Total Bilirubin 0.9 1.4 Sodium Level 142 143 Potassium Level 4.3 4.1 Chloride Level 108 110 Carbon Dioxide Level 26.8 26.9 Anion Gap 7 6 Estimat Glomerular Filtration Rate 76 77 Ammonia 31 B-Type Natriuretic Peptide 98 Lipase 159 Thyroid Stimulating Hormone 3rd Gen 2.670 Magnesium Level 2.0 Result Diagram: 11/17/1751911/17/17519 Caprini VTE Risk Assessment Caprini VTE Risk Assessment: Mod/High Risk (score >= 2) Caprini Risk Assessment Model Point Value = 1 Point Value = 2 Point Value = 3 Point Value = 5 Age 41-60 Minor surgery BMI > 25 kg/m2 Swollen legs Varicose veins or History of unexplained or recurrent spontaneous Oral contraceptives or hormone replacement Sepsis (< 1 month) Serious lung disease, including pneumonia (< 1 month) Abnormal pulmonary function Acute myocardial infarction Congestive heart failure (< 1 month) History of inflammatory bowel disease Medical patient at bed rest Age 61-74 Arthroscopic surgery Major open surgery (> 45 min) Laparoscopic surgery (> 45 min) Malignancy Confined to bed (> 72 hours) Immobilizing plaster cast Central venous access Age >= 75 History of VTE Family history of VTE Factor V Leiden Prothrombin [id number] Lupus anticoagulant Anticardiolipin antibodies Elevated serum homocysteine Heparin-induced thrombocytopenia Other congenital or acquired thrombophilia Stroke (< 1 month) Elective arthroplasty Hip, pelvis, or leg fracture Acute spinal cord injury (< 1 month) Prophylaxis Regimen Total Risk Factor Score Risk Level Prophylaxis Regimen 0-1 Low Early ambulation 2 Moderate Order ONE of the following: *Sequential Compression Device (SCD) *Heparin 5000 units SQ BID 3-4 Higher Order ONE of the following medications: *Heparin 5000 units SQ TID *Enoxaparin/Lovenox 40 mg SQ daily (WT < 150 kg, CrCl > 30 mL/min) *Enoxaparin/Lovenox 30 mg SQ daily (WT < 150 kg, CrCl > 10-29 mL/min) *Enoxaparin/Lovenox 30 mg SQ BID (WT < 150 kg, CrCl > 30 mL/min) AND/OR *Sequential Compression Device (SCD) 5 or more Highest Order ONE of the following medications: *Heparin 5000 units SQ TID (Preferred with Epidurals) *Enoxaparin/Lovenox 40 mg SQ daily (WT < 150 kg, CrCl > 30 mL/min) *Enoxaparin/Lovenox 30 mg SQ daily (WT < 150 kg, CrCl > 10-29 mL/min) *Enoxaparin/Lovenox 30 mg SQ BID (WT < 150 kg, CrCl > 30 mL/min) AND *Sequential Compression Device (SCD) Assessment and Plan Assessment and Plan ASSESSMENT 1. Acute Cholecystitis. 2. New Atrial Fibrillation with Rapid Ventricular Response. 3. Peripheral Edema. 4. Hypertension. 5. Hyperlipidemia. 6. Hematochromatosis. 7. Osteoarthritis. PLAN 1. Admit to the hospital as an Inpatient. 2. Consultation to General Surgery. 3. Consultation to Cardiology. 4. HIDA Scan to be done. 5. Intravenous antibiotics. 6. Follow up laboratory assessment. 7. DVT and PE prophylaxis. Kevyn Proctor MD Nov 17, 2017 09:58
[2017-11-17] MEDS: metroNIDAZOLE 500 MG INJ 100 ML IV SCH ×3 (11:08→23:12)
[2017-11-17] MEDS: LEVOFLOXACIN 750 MG PREMIX INJ 150 ML IV SCH (11:08)
[2017-11-17] MEDS ORDERED: SINCALIDE 5 MCG/5 ML VIAL IV ONE (13:55)
[2017-11-17] MEDS: FUROSEMIDE 40 MG/4 ML VIAL IV PUSH SCH (14:37)
--- NOTE | 2017-11-17 14:41 | RADRPT ---
EXAM DATE/TIME: 11/17/2017 12:44 [facility] COMPARISON: No previous studies available for comparison. INDICATIONS : Abdominal pain. DOSE: 4.1 mCi Tc99m Mebrofenin IV MEDICATION: 1.7 mcg Cholecystokinin IV; No symptomatic response. Cholecystokinin was administered by slow infusion over 8 minutes beginning at 60 minutes. MEDICAL HISTORY : Hypertension. SURGICAL HISTORY : Inguinal hernia repair. ENCOUNTER: Initial ACUITY: 1 day PAIN SCALE: 1/10 LOCATION: Right upper quadrant TECHNIQUE: Following the intravenous administration of radiotracer, dynamic sequential image were performed with continuous acquisition. Time-activity curves were generated. FINDINGS: HEPATIC KINETICS: There is prompt uptake of radiotracer in the liver. No focal defects are seen. There is normal rate of washout from the hepatic parenchyma. BILIARY CLEARANCE: Activity is first seen in the extrahepatic biliary system at 10 minutes. There is normal excretion i nto the small bowel. GALLBLADDER: Activity is first seen in the gallbladder at 15 minutes. POST CHOLECYSTOKININ: After Cholecystokinin administration, there is prompt emptying of the gallbladder with a 30% ejection fraction. Common bile duct kinetics are normal and there is no evidence of biliary obstruction. BILIARY ENTERIC REFLUX: None observed. CLINICAL: The patient was asymptomatic after Cholecystokinin administration. CONCLUSION: Borderline gallbladder ejection fraction. Otherwise within normal limits. Abnormal ej ection fraction can be seen with chronic cholecystitis. Eric Henson MD on November 17, 2017 at 14:37 Board Certified Radiologist. This report was verified electronically.
--- NOTE | 2017-11-17 19:25 | MB ---
cc: Earl Guillermo MD, Joshua A MD DATE OF CONSULT: 11/17/2017 REASON FOR CONSULTATION: New onset atrial fibrillation. HISTORY OF PRESENT ILLNESS: The patient is a very pleasant 56-year-old gentleman who has no prior cardiac history, but who recently underwent left knee surgery. Since going home, he has been feeling more and more bloated with general fluid retention in his extremities as well as his abdomen, which has also become tense. He presented to the emergency department and workup has been consistent with acute cholecystitis. He incidentally was found to be in a mildly rapid atrial fibrillation. He does feel he has been more short of breath lately, no chest pain or even distinct palpitations, lightheadedness, dizziness or syncope. PAST MEDICAL HISTORY: Hypertension, osteoarthritis. CURRENT MEDICATIONS: Flagyl, Levaquin. ALLERGIES: NO KNOWN DRUG ALLERGIES. PHYSICAL EXAMINATION: VITAL SIGNS: Afebrile, pulse 83, respiratory rate 18, BP 126/74, satting 98% on room air. GENERAL: A pleasant well-appearing gentleman in no distress. NECK: No JVD. LUNGS: Clear to auscultation bilaterally. CARDIOVASCULAR: Irregularly irregular rhythm with a regular rate. No murmurs appreciated. ABDOMEN: Mildly distended and tender, particularly in the right upper quadrant. EXTREMITIES: Trace edema bilaterally. LABORATORY DATA: Sodium 143, potassium 4.1, chloride 110, bicarb 26.9, BUN 17, creatinine 1.01, glucose 100. INR is 1.2. White count 8.7, hematocrit 37.2, platelets 174. CARDIOLOGY STUDIES: EKG on admission shows an atrial fibrillation at a rate of [address] changes. IMPRESSION: New onset atrial fibrillation. The patient has new onset atrial fibrillation in the setting of acute cholecystitis. It is unclear whether these 2 diagnoses are related. I will have him undergo an echocardiogram to evaluate his left ventricular function and also give him at least 1 dose of intravenous Lasix to help his fluid retention. With regards to anticoagulation, that is currently on hold due to possible need for surgery. His long-term need for anticoagulation is somewhat unclear, but he does have risk factors including hypertension and possibly congestive heart failure (with his current fluid retention) so anticoagulation may be required presuming he stays in atrial fibrillation and this is interrelated purely to his overall inflammatory state from acute cholecystitis. Further recommendation will be based on the above and his clinical response. Thank you again for the opportunity to participate in this patient's care. MD SAVANNAH [email or web address] , 11:34 AM , 06:02 PM
[2017-11-17] MEDS: TEMAZEPAM 15 MG CAP PO PRN (23:14)
--- NOTE | 2017-11-17 23:44 | EKG ---
Date Performed: 11/17/2017 Time Performed: 09:51:43 PTAGE: 56 years EKG: ATRIAL FIBRILLATION NONSPECIFIC T-WAVE ABNORMALITY ABNORMAL RHYTHM ECG PREVIOUS TRACING : 11/16/2017 23.00 Since the prior tracing, there has been no significant lozano DOCTOR: Tate Anderson Interpretating Date/Time 11/17/2017 23:43:41
--- NOTE | 2017-11-17 23:59 | EKG ---
Date Performed: 11/16/2017 Time Performed: 23:00:02 PTAGE: 56 years EKG: ATRIAL FIBRILLATION ABNORMAL RHYTHM ECG PREVIOUS TRACING : 12/02/2016 17.31 Compared to prior tracing, now in Afib DOCTOR: Tate Anderson Interpretating Date/Time 11/17/2017 23:57:55
[2017-11-18] VITALS: BP 138/88; PULSE 97; RESP 17; TEMP 96.2; O2SAT 97
[2017-11-18] MEDS: D5-1/2 NS + KCL 20 MEQ INJ 1,000 ML IV SCH ×2 (00:14→08:48)
[2017-11-18 04:00] VITALS: BP 117/87; PULSE 86; RESP 17; TEMP 97.2; O2SAT 100
[2017-11-18] MEDS: metroNIDAZOLE 500 MG INJ 100 ML IV SCH (04:08)
[2017-11-18 07:38] LABS: AUTOMATED NEUTROPHIL # 5.8 TH/MM3 (1.8-7.7); BASOPHIL # 0.1 TH/MM3 (0-0.2); BASOPHIL % 0.6 % (0.0-2.0); EOSINOPHIL # 0.2 TH/MM3 (0-0.4); EOSINOPHIL % 1.8 % (0.0-4.0); HEMATOCRIT 39.1 % (39.0-51.0); HEMOGLOBIN 13.3 GM/DL (13.0-17.0); LYMPHOCYTE # 1.6 TH/MM3 (1.0-4.8); MEAN CELL VOLUME 94.4 FL (80.0-100.0); MEAN CORPUSCULAR HEMOGLOBIN 32.1 PG (27.0-34.0); MEAN PLATELET VOLUME 8.4 FL (7.0-11.0); MONO % 9.1 % (0.0-8.0); MONOCYTE # 0.8 TH/MM3 (0-0.9); NEUT % 69.5 % (16.0-70.0); PLATELET COUNT 172 TH/MM3 (150-450); RED BLOOD COUNT 4.14 MIL/MM3 (4.50-5.90); RED CELL DISTRIBUTION WIDTH 12.5 % (11.6-17.2); WHITE BLOOD COUNT 8.4 TH/MM3 (4.0-11.0)
[2017-11-18] MEDS: SODIUM CHLORIDE 0.9% FLUSH 10 ML FLUSH IV FLUSH SCH ×2 (07:58→21:00)
[2017-11-18 08:00] VITALS: BP 126/78; PULSE 84; RESP 20; TEMP 96.2; O2SAT 94
[2017-11-18] MEDS: FUROSEMIDE 40 MG/4 ML VIAL IV PUSH SCH (08:03)
[2017-11-18] MEDS: DOCUSATE SODIUM 50 MG/SENNA 8.6 MG TAB PO SCH ×2 (08:03→21:28)
[2017-11-18 08:07] LABS: ALBUMIN 3.4 GM/DL (3.4-5.0); AST (GOT) 23 U/L (15-37); BICARBONATE 27.7 MEQ/L (21.0-32.0); BLOOD UREA NITROGEN 12 MG/DL (7-18); CALCIUM 8.4 MG/DL (8.5-10.1); CHLORIDE 107 MEQ/L (98-107); CREATININE 0.97 MG/DL (0.60-1.30); GLOMERULAR FILTRATION RATE 80 ML/MIN (>89); GLUCOSE,RANDOM 117 MG/DL (74-106); SODIUM (NA) 141 MEQ/L (136-145)
[2017-11-18 08:11] LABS: ALKALINE PHOSPHATASE 112 U/L (45-117); ALT (GPT) 35 U/L (12-78); TOTAL BILIRUBIN ADULT 1.2 MG/DL (0.2-1.0); TOTAL PROTEIN 7.1 GM/DL (6.4-8.2)
[2017-11-18] MEDS: LEVOFLOXACIN 750 MG PREMIX INJ 150 ML IV SCH (08:48)
--- NOTE | 2017-11-18 09:06 | HHI.PR ---
Subjective Subjective Notes He feels better today. Denies abdominal pain. Objective Vitals/I&O Vital Signs Date Time Temp Pulse Resp B/P (MAP) Pulse Ox O2 Delivery O2 Flow Rate FiO2 11/18/17 08:00 96.2 84 20 126/78 (94) 94 Labs Laboratory Tests Test 11/18/17 07:08 White Blood Count 8.4 Red Blood Count 4.14 Hemoglobin 13.3 Hematocrit 39.1 Mean Corpuscular Volume 94.4 Mean Corpuscular Hemoglobin 32.1 Mean Corpuscular Hemoglobin Concent 34.0 Red Cell Distribution Width 12.5 Platelet Count 172 Mean Platelet Volume 8.4 Neutrophils (%) (Auto) 69.5 Lymphocytes (%) (Auto) 19.0 Monocytes (%) (Auto) 9.1 Eosinophils (%) (Auto) 1.8 Basophils (%) (Auto) 0.6 Neutrophils # (Auto) 5.8 Lymphocytes # (Auto) 1.6 Monocytes # (Auto) 0.8 Eosinophils # (Auto) 0.2 Basophils # (Auto) 0.1 CBC Comment DIFF FINAL Differential Comment Blood Urea Nitrogen 12 Creatinine 0.97 Random Glucose 117 Total Protein 7.1 Albumin 3.4 Calcium Level 8.4 Alkaline Phosphatase 112 Aspartate Amino Transf (AST/SGOT) 23 Alanine Aminotransferase (ALT/SGPT) 35 Total Bilirubin 1.2 Sodium Level 141 Potassium Level 3.9 Chloride Level 107 Carbon Dioxide Level 27.7 Anion Gap 6 Estimat Glomerular Filtration Rate 80 Radiology Last Impressions Gall Bladder Ultrasound 11/17/17 0125 Signed Impressions: Service Date/Time: Friday, November 17, 2017 02:06 - CONCLUSION: Marked gallbladder wall thickening. No stones or evidence of biliary obstruction. All Camacho MD CT Angiography 11/16/17 1253 Signed Impressions: Service Date/Time: Friday, November 17, 2017 00:19 - CONCLUSION: 1. No pulmonary embolus or other acute cardiopulmonary disease demonstrated. 2. Pericardial calcification, usually the sequela of previous pericarditis. There does seem to be some associated mild bandlike mass effect on the heart, especially the right atrium, for example series 301 image 84. No significant pericardial effusion demonstrated to suggest acute pericarditis. All Camacho MD Abdomen/Pelvis CT 11/16/17 2300 Signed Impressions: Service Date/Time: Friday, November 17, 2017 00:19 - CONCLUSION: CT findings of acute cholecystitis in the proper clinical setting. No other acute abnormalities are demonstrated. There is a nonobstructing stone of the right kidney. The appendix is normal. All Camacho MD Chest X-Ray 11/16/177 Signed Impressions: Service Date/Time: Thursday, November 16, 2017 22:13 - CONCLUSION: The lungs are clear. Francisco Kapadia MD Narrative Exam NAD Abd: mild RUQ ttp A/P Assessment and Plan 56 yo M acute acalculous cholecystitis, atrial fibrillation, ? CHF HIDA shows filling of gallbladder, so cystic duct is not obstructed. He is not having abdominal complaints or pain. I am going to treat him with antibiotics only, no operation at this time. He is having ECHO for further evaluation of atrial fibrillation and possible new onset CHF. Low fat diet. He will need 10 days antibiotics after discharge and they are on the chart. Ok for discharge as long as he is tolerating diet when clear from medical standpoint. F/u with me in two weeks. Bryce,Freddy CASEY Nov 18, 2017 09:06
[2017-11-18] MEDS ORDERED: METR1TAB76 PO (09:07)
[2017-11-18] MEDS ORDERED: LEVO750T3 PO (09:07)
--- NOTE | 2017-11-18 09:54 | HHI.PR ---
Subjective Remarks He still reports some shortness of breath with mild exertional activity. He is happy that he notices the swelling is improving. He is tolerating the current medication treatment plan. Objective - Vital Signs Date Time Temp Pulse Resp B/P (MAP) Pulse Ox O2 Delivery O2 Flow Rate FiO2 11/18/17 08:00 96.2 84 20 126/78 (94) 94 11/18/17 04:00 97.2 86 17 117/87 (97) 100 11/18/17 00:00 96.2 97 17 138/88 (105) 97 11/17/17 20:00 96.7 90 17 127/91 (103) 98 11/17/17 16:00 95.3 101 17 150/98 (115) 99 11/17/17 12:00 96.8 85 18 112/82 (92) 96 I/O 11/17/17 11/17/17 11/17/17 11/18/17 11/18/17 11/18/17 07:00 15:00 23:00 07:00 15:00 23:00 Intake Total 250 ml 0 ml 0 ml Output Total 1000 ml 600 ml Balance 250 ml -1000 ml -600 ml Intake Oral 0 ml 0 ml IV Total 250 ml Output Urine Total 1000 ml 600 ml # Bowel Movements 0 Result Diagram: 11/18/1708 11/18/17707 Objective Remarks GENERAL: Alert and in no acute distress. SKIN: Warm and dry. HEAD: Normocephalic. Atraumatic. EYES: No scleral icterus. No injection or drainage. NECK: Supple, trachea midline. No JVD or lymphadenopathy. CARDIOVASCULAR: Regular rate and rhythm without murmurs, gallops, or rubs. RESPIRATORY: Breath sounds equal bilaterally. No accessory muscle use. GASTROINTESTINAL: Abdomen soft, non-tender, nondistended. MUSCULOSKELETAL: No cyanosis, or edema. BACK: Nontender without obvious deformity. No CVA tenderness. NEUROLOGICAL: No acute lateralizing focal deficits. A/P Assessment and Plan ASSESSMENT 1. Acute Acalculus Cholecystitis. 2. New Atrial Fibrillation with Rapid Ventricular Response. 3. Possible New Congestive Heart Failure with Peripheral Edema. 4. Hypertension. 5. Hyperlipidemia. 6. Hemochromatosis. 7. Osteoarthritis. PLAN 1. Continue with the current medication regimen. 2. General Surgery disposition noted. 3. Cardiology follows with work up in progress. 4. Activity as tolerated. 5. Continue intravenous antibiotics. 6. Follow up laboratory assessment. 7. DVT and PE prophylaxis. Kevyn Proctor MD Nov 18, 2017 09:54
[2017-11-18 12:00] VITALS: BP 102/79; PULSE 100; RESP 19; TEMP 97; O2SAT 99
[2017-11-18] MEDS: metroNIDAZOLE 500 MG TAB PO SCH ×2 (12:24→21:28)
--- NOTE | 2017-11-18 13:13 | PD.CARD.PN ---
Subjective Subjective Remarks Pt feels much better now that he has diuresed, rates slightly fast on tele Objective Medications Current Medications Medications (Trade) Dose Ordered Sig/Masha Route Start Time Stop Time Status Last Admin (NS Flush) 2 ml UNSCH PRN IV FLUSH 11/17/17 04:15 (NS Flush) 2 ml BID IV FLUSH 11/17/17 09:00 (Zofran Inj) 4 mg Q6H PRN IVP 11/17/17 04:15 (Narcan Inj) 0.4 mg UNSCH PRN IV PUSH 11/17/17 04:15 (Tayler-Colace) 1 tab BID PO 11/17/17 09:00 11/18/17 08:03 (Milk Of Magnesia Liq) 30 ml Q12H PRN PO 11/17/17 04:15 (Senokot) 17.2 mg Q12H PRN PO 11/17/17 04:15 (Dulcolax Supp) 10 mg DAILY PRN RECTAL 11/17/17 04:15 (Lactulose Liq) 30 ml DAILY PRN PO 11/17/17 04:15 (Lasix Inj) 40 mg DAILY IV PUSH 11/17/17 11:45 11/18/17 08:03 (Restoril) 15 mg HS PRN PO 11/17/17 21:30 11/17/17 23:14 (Levaquin) 750 mg DAILY PO 11/19/17 09:00 (Flagyl) 500 mg Q8HR PO 11/18/17 14:00 11/18/17 12:24 Vital Signs / I&O Vital Signs Date Time Temp Pulse Resp B/P (MAP) Pulse Ox O2 Delivery O2 Flow Rate FiO2 11/18/17 12:00 97.0 100 19 102/79 (87) 99 11/18/17 08:00 96.2 84 20 126/78 (94) 94 11/18/17 04:00 97.2 86 17 117/87 (97) 100 11/18/17 00:00 96.2 97 17 138/88 (105) 97 11/17/17 20:00 96.7 90 17 127/91 (103) 98 11/17/17 16:00 95.3 101 17 150/98 (115) 99 I/O 11/17/17 11/17/17 11/17/17 11/18/17 3/11/18 3/11/18 07:00 15:00 23:00 07:00 15:00 23:00 Intake Total 250 ml 0 ml 0 ml 100 ml Output Total 1000 ml 600 ml Balance 250 ml -1000 ml -600 ml 100 ml Intake Oral 0 ml 0 ml IV Total 250 ml 100 ml Output Urine Total 1000 ml 600 ml # Bowel Movements 0 Physical Exam GENERAL: This is a well-nourished, well-developed patient, in no apparent distress. CARDIOVASCULAR: Regular rate and irregular rhythm without murmurs, gallops, or rubs. RESPIRATORY: Clear to auscultation. Breath sounds equal bilaterally. No wheezes , rales, or rhonchi. GASTROINTESTINAL: slightly distended MUSCULOSKELETAL: Extremities without clubbing, cyanosis, or edema. NEURO: Alert & Oriented x4 to person, place, time, situation. Moves all ext x4 Laboratory Laboratory Tests Test 11/18/17 07:08 White Blood Count 8.4 TH/MM3 Red Blood Count 4.14 MIL/MM3 Hemoglobin 13.3 GM/DL Hematocrit 39.1 % Mean Corpuscular Volume 94.4 FL Mean Corpuscular Hemoglobin 32.1 PG Mean Corpuscular Hemoglobin Concent 34.0 % Red Cell Distribution Width 12.5 % Platelet Count 172 TH/MM3 Mean Platelet Volume 8.4 FL Neutrophils (%) (Auto) 69.5 % Lymphocytes (%) (Auto) 19.0 % Monocytes (%) (Auto) 9.1 % Eosinophils (%) (Auto) 1.8 % Basophils (%) (Auto) 0.6 % Neutrophils # (Auto) 5.8 TH/MM3 Lymphocytes # (Auto) 1.6 TH/MM3 Monocytes # (Auto) 0.8 TH/MM3 Eosinophils # (Auto) 0.2 TH/MM3 Basophils # (Auto) 0.1 TH/MM3 CBC Comment DIFF FINAL Differential Comment Blood Urea Nitrogen 12 MG/DL Creatinine 0.97 MG/DL Random Glucose 117 MG/DL Total Protein 7.1 GM/DL Albumin 3.4 GM/DL Calcium Level 8.4 MG/DL Alkaline Phosphatase 112 U/L Aspartate Amino Transf (AST/SGOT) 23 U/L Alanine Aminotransferase (ALT/SGPT) 35 U/L Total Bilirubin 1.2 MG/DL Sodium Level 141 MEQ/L Potassium Level 3.9 MEQ/L Chloride Level 107 MEQ/L Carbon Dioxide Level 27.7 MEQ/L Anion Gap 6 MEQ/L Estimat Glomerular Filtration Rate 80 ML/MIN Imaging Last Impressions Hepatobiliary Scan Nuclear Medicine 11/17/17 0942 Signed Impressions: Service Date/Time: Friday, November 17, 2017 12:44 - CONCLUSION: Borderline gallbladder ejection fraction. Otherwise within normal limits. Abnormal ejection fraction can be seen with chronic cholecystitis. Eric Henson MD Gall Bladder Ultrasound 11/17/17 0125 Signed Impressions: Service Date/Time: Friday, November 17, 2017 02:06 - CONCLUSION: Marked gallbladder wall thickening. No stones or evidence of biliary obstruction. All Camacho MD CT Angiography 11/16/172302 Signed Impressions: Service Date/Time: Friday, November 17, 2017 00:19 - CONCLUSION: 1. No pulmonary embolus or other acute cardiopulmonary disease demonstrated. 2. Pericardial calcification, usually the sequela of previous pericarditis. There does seem to be some associated mild bandlike mass effect on the heart, especially the right atrium, for example series 301 image 84. No significant pericardial effusion demonstrated to suggest acute pericarditis. All Cmaacho MD Abdomen/Pelvis CT 11/16/172302 Signed Impressions: Service Date/Time: Friday, November 17, 2017 00:19 - CONCLUSION: CT findings of acute cholecystitis in the proper clinical setting. No other acute abnormalities are demonstrated. There is a nonobstructing stone of the right kidney. The appendix is normal. All Camacho MD Chest X-Ray 11/16/17 1442 Signed Impressions: Service Date/Time: Thursday, November 16, 2017 22:13 - CONCLUSION: The lungs are clear. Francisco Kapadia MD Assessment and Plan Problem List: (1) Atrial fibrillation ICD Codes: I48.91 - Unspecified atrial fibrillation Plan: rates still slightly fast, will increase meds. Chads-vas 1-2 for HTN/ possible chf; apparently no need for surgery so will initiate eliquis 5mg bid (2) Fluid retention ICD Codes: R60.9 - Edema, unspecified Plan: doing much better from one dose of IV lasix and still diuresising; will reassess tomorrow (3) Acute cholecystitis ICD Codes: K81.0 - Acute cholecystitis Status: Acute Plan: no plan for surgery per surgical notes. Earl Guillermo MD Nov 18, 2017 13:13
[2017-11-18] MEDS: CARVEDILOL 3.125 MG TAB PO SCH ×2 (14:24→21:28)
[2017-11-18] MEDS: APIXABAN 5 MG TABLET PO SCH ×2 (14:25→21:28)
[2017-11-18 16:00] VITALS: BP 120/75; PULSE 83; RESP 19; TEMP 97.2; O2SAT 97
--- NOTE | 2017-11-18 16:56 | ECHRPT ---
Indication: CONCLUSIONS Normal left ventricular size. Wall thickness is normal. The left ventricular systolic function is severely reduced with an estimated ejection fraction in th e range of 20-25%. Severe global hypokinesis BP: 126 / 78 HR: 94 Rhythm: MEASUREMENTS (Male / Female) Normal Values Technical Quality:Good 2D ECHO LV Diastolic Diameter PLAX 4.3 cm 4.2 - 5.9 / 3.9 - 5.3 cm LV Systolic Diameter PLAX 3.8 cm IVS Diastolic Thickness 1.2 cm 0.6 - 1.0 / 0.6 - 0.9 cm LVPW Diastolic Thickness 0.8 cm 0.6 - 1.0 / 0.6 - 0.9 cm LV Relative Wall Thickness 0.5 RV Internal Dim ED PLAX 2.0 cm LA Systolic Diameter LX 3.6 cm 3.0 - 4.0 / 2.7 - 3.8 cm DOPPLER Mitral E Point Velocity 77.7 cm/s TR Peak Velocity 178.0 cm/s TR Peak Gradient 12.7 mmHg FINDINGS LEFT VENTRICLE Normal left ventricular size. Wall thickness is normal. The left ventricular systolic function is severely reduced with an estimated ejection fraction in th e range of 20-25%. There is global left ventricular dysfunction. RIGHT VENTRICLE Normal right ventricular size and systolic function. LEFT ATRIUM The left atrial size is normal. RIGHT ATRIUM The right atrial size is normal. ATRIAL SEPTUM Normal atrial septal thickness without atrial level shunting by limited color doppler interrogation. AORTA The aortic root and proximal ascending aorta are normal in size on limited imaging. MITRAL VALVE Structurally normal mitral valve. No mitral valve stenosis or regurgitation. AORTIC VALVE Trileaflet aortic valve. No aortic valve stenosis or regurgitation. TRICUSPID VALVE Structurally normal tricuspid valve. No tricuspid valve stenosis or regurgitation. PULMONARY VALVE The pulmonary valve is not well visualized. VESSELS The inferior vena cava is normal in size. PERICARDIUM No pericardial effusion. Earl Guillermo MD (Electronically Signed) Final Date:18 November 2017 16:54
[2017-11-18 20:00] VITALS: BP 116/85; PULSE 93; RESP 18; TEMP 98.2; O2SAT 98
[2017-11-18] MEDS: TEMAZEPAM 15 MG CAP PO PRN (21:27)
[2017-11-18] MEDS: SACUBITRIL/VALSARTAN 24 MG-26 MG TAB PO SCH (21:28)
[2017-11-19] VITALS: BP 114/80; PULSE 81; RESP 17; TEMP 97.6; O2SAT 98
[2017-11-19] MEDS: metroNIDAZOLE 500 MG TAB PO SCH ×3 (05:23→20:55)
[2017-11-19 05:56] VITALS: BP 105/74; PULSE 67; RESP 18; TEMP 96; O2SAT 97
[2017-11-19 08:00] VITALS: BP 113/90; PULSE 81; RESP 19; TEMP 95.7; O2SAT 95
[2017-11-19] MEDS: CARVEDILOL 3.125 MG TAB PO SCH (08:22)
[2017-11-19] MEDS: LEVOFLOXACIN 750 MG TAB PO SCH (08:22)
[2017-11-19] MEDS: SACUBITRIL/VALSARTAN 24 MG-26 MG TAB PO SCH ×2 (08:22→20:55)
[2017-11-19] MEDS: DOCUSATE SODIUM 50 MG/SENNA 8.6 MG TAB PO SCH ×2 (08:22→21:00)
[2017-11-19] MEDS: APIXABAN 5 MG TABLET PO SCH ×2 (08:22→20:56)
[2017-11-19] MEDS: SODIUM CHLORIDE 0.9% FLUSH 10 ML FLUSH IV FLUSH SCH ×2 (08:23→21:02)
--- NOTE | 2017-11-19 08:31 | PD.CARD.PN ---
Subjective Subjective Remarks Pt feels much better now that he has diuresed, rates still slightly fast on tele Objective Medications Current Medications Medications (Trade) Dose Ordered Sig/Masha Route Start Time Stop Time Status Last Admin (NS Flush) 2 ml UNSCH PRN IV FLUSH 11/17/17 04:15 (NS Flush) 2 ml BID IV FLUSH 11/17/17 09:00 11/18/17 21:00 (Zofran Inj) 4 mg Q6H PRN IVP 11/17/17 04:15 (Narcan Inj) 0.4 mg UNSCH PRN IV PUSH 11/17/17 04:15 (Tayler-Colace) 1 tab BID PO 11/17/17 09:00 11/18/17 21:28 (Milk Of Magnesia Liq) 30 ml Q12H PRN PO 11/17/17 04:15 (Senokot) 17.2 mg Q12H PRN PO 11/17/17 04:15 (Dulcolax Supp) 10 mg DAILY PRN RECTAL 11/17/17 04:15 (Lactulose Liq) 30 ml DAILY PRN PO 11/17/17 04:15 (Restoril) 15 mg HS PRN PO 11/17/17 21:30 11/18/17 21:27 (Levaquin) 750 mg DAILY PO 11/19/17 09:00 (Flagyl) 500 mg Q8HR PO 11/18/17 14:00 11/19/17 05:23 (Eliquis) 5 mg BID PO 11/18/17 13:15 11/18/17 21:28 (Coreg) 3.125 mg Q12HR PO 11/18/17 13:15 11/18/17 21:28 (Entresto 24-26 Mg) 1 tab BID PO 11/18/17 21:00 11/18/17 21:28 Vital Signs / I&O Vital Signs Date Time Temp Pulse Resp B/P (MAP) Pulse Ox O2 Delivery O2 Flow Rate FiO2 11/19/17 08:00 95.7 81 19 113/90 (98) 95 11/19/17 05:56 96.0 67 18 105/74 (84) 97 11/19/17 00:00 97.6 81 17 114/80 (91) 98 11/18/17 20:00 98.2 93 18 116/85 (95) 98 11/18/17 16:00 97.2 83 19 120/75 (90) 97 11/18/17 12:00 97.0 100 19 102/79 (87) 99 I/O 11/18/17 11/18/17 11/18/17 11/19/17 11/19/17 11/19/17 07:00 15:00 23:00 07:00 15:00 23:00 Intake Total 0 ml 500 ml 960 ml 240 ml Output Total 600 ml 300 ml Balance -600 ml 500 ml 960 ml -60 ml Intake Oral 0 ml 960 ml 240 ml IV Total 500 ml Output Urine Total 600 ml 300 ml # Voids 4 Physical Exam GENERAL: This is a well-nourished, well-developed patient, in no apparent distress. CARDIOVASCULAR: Regular rate and irregular rhythm without murmurs, gallops, or rubs. RESPIRATORY: Clear to auscultation. Breath sounds equal bilaterally. No wheezes , rales, or rhonchi. GASTROINTESTINAL: slightly distended MUSCULOSKELETAL: Extremities without clubbing, cyanosis, or edema. NEURO: Alert & Oriented x4 to person, place, time, situation. Moves all ext x4 Imaging Last Impressions Hepatobiliary Scan Nuclear Medicine 11/17/17 0942 Signed Impressions: Service Date/Time: Friday, November 17, 2017 12:44 - CONCLUSION: Borderline gallbladder ejection fraction. Otherwise within normal limits. Abnormal ejection fraction can be seen with chronic cholecystitis. Eric Henson MD Gall Bladder Ultrasound 11/17/17 0125 Signed Impressions: Service Date/Time: Friday, November 17, 2017 02:06 - CONCLUSION: Marked gallbladder wall thickening. No stones or evidence of biliary obstruction. All Camacho MD CT Angiography 11/16/17 8786 Signed Impressions: Service Date/Time: Friday, November 17, 2017 00:19 - CONCLUSION: 1. No pulmonary embolus or other acute cardiopulmonary disease demonstrated. 2. Pericardial calcification, usually the sequela of previous pericarditis. There does seem to be some associated mild bandlike mass effect on the heart, especially the right atrium, for example series 301 image 84. No significant pericardial effusion demonstrated to suggest acute pericarditis. All Camacho MD Abdomen/Pelvis CT 11/16/17 8988 Signed Impressions: Service Date/Time: Friday, November 17, 2017 00:19 - CONCLUSION: CT findings of acute cholecystitis in the proper clinical setting. No other acute abnormalities are demonstrated. There is a nonobstructing stone of the right kidney. The appendix is normal. All Camacho MD Chest X-Ray 11/16/17 [id number] Signed Impressions: Service Date/Time: Thursday, November 16, 2017 22:13 - CONCLUSION: The lungs are clear. Francisco Kapadia MD Assessment and Plan Problem List: (1) Cardiomyopathy ICD Codes: I42.9 - Cardiomyopathy, unspecified Plan: Probably non-ischemic, ? tachycardic; for nuclear stress today; on coreg/ entresto (2) Acute systolic CHF (congestive heart failure) ICD Codes: I50.21 - Acute systolic (congestive) heart failure Plan: Still somewhat fluid up, ? if coughing related, will continue IV lasix for now (3) Atrial fibrillation ICD Codes: I48.91 - Unspecified atrial fibrillation Plan: rates still slightly fast, will increase meds. Chads-vas 1-2 for HTN/ possible chf; apparently no need for surgery so will initiate eliquis 5mg bid (4) Fluid retention ICD Codes: R60.9 - Edema, unspecified Plan: improving w/ lasix (5) Acute cholecystitis ICD Codes: K81.0 - Acute cholecystitis Status: Acute Plan: no plan for surgery per surgical notes. Problem Qualifiers (1) Cardiomyopathy: Qualified Codes: I42.9 - Cardiomyopathy, unspecified Earl Guillermo MD Nov 19, 2017 08:30
[2017-11-19] MEDS ORDERED: REGADENOSON INJ 0.4 MG/5 ML SYR ONE (09:25)
--- NOTE | 2017-11-19 11:02 | RADRPT ---
EXAM DATE/TIME: 11/19/2017 09:02 [place] COMPARISON: No previous studies available for comparison. INDICATIONS : Atrial fibrillation. DOSE: 27.2 mCi Tc99m Myoview at stress. 8.2 mCi Tc99m Myoview at rest. 0.4 mg Lexiscan STRESS SYMPTOMS: Dyspnea and heart racing. EJECTION FRACTION: 45% MEDICAL HISTORY : Hypercholesterolemia. Hypertension. Hernia, inguinal. SURGICAL HISTORY : Inguinal hernia repair. ENCOUNTER: Initial ACUITY: 1 day PAIN SCALE: 0/10 LOCATION: chest TECHNIQUE: The patient underwent pharmacologic stress with infusion of prescribed dose. Continuous ECG tracing was monitored during stress. Gated SPECT imaging was performed after stress and conventional SPECT i maging was performed at rest. The examination was performed on a SPECT/CT scanner, both attenuation and non-corrected datasets were reviewed. FINDINGS: DISTRIBUTION: The maximum perfused segment at stress is in the lateral wall. PERFUSION STUDY: The pattern of perfusion at stress is within normal limits. GATED STUDY: Diffuse mild global hypokinesia. CONCLUSION: 1. No significant stress induced ischemia or infarction. 2. Diffuse mild global hypokinesia with EF of 45%. RISK CATEGORY: Intermediate (1-3% Annual Mortality Rate) Bassam Roman MD on November 19, 2017 at 10:58 Board Certified Radiologist. This report was verified electronically.
[2017-11-19] MEDS: FUROSEMIDE 40 MG/4 ML VIAL IV PUSH SCH (11:45)
[2017-11-19] MEDS: CARVEDILOL 6.25 MG TAB PO SCH ×2 (11:45→20:55)
[2017-11-19 12:00] VITALS: BP 94/76; PULSE 64; RESP 19; TEMP 96.3; O2SAT 100
[2017-11-19 12:34] LABS: BICARBONATE 30.3 MEQ/L (21.0-32.0); CALCIUM 8.8 MG/DL (8.5-10.1); CREATININE 1.18 MG/DL (0.60-1.30)
[2017-11-19] MEDS: guaiFENesin/CODEINE SYRUP 200 MG/20 MG/10 ML CUP PO PRN ×2 (15:24→20:55)
[2017-11-19 16:00] VITALS: BP 92/66; PULSE 79; RESP 19; TEMP 97; O2SAT 95
[2017-11-19 20:00] VITALS: BP 111/58; PULSE 89; RESP 18; TEMP 96.9; O2SAT 96
[2017-11-19] MEDS: TEMAZEPAM 15 MG CAP PO PRN (20:55)
[2017-11-20] VITALS (8 sets, daily range): BP systolic 99–115; BP diastolic 54–89; PULSE 68–100; RESP 17–20; TEMP 96–97.9; O2SAT 92–97
[2017-11-20] MEDS: metroNIDAZOLE 500 MG TAB PO SCH ×3 (05:08→20:37)
--- NOTE | 2017-11-20 07:47 | PD.CARD.PN ---
Subjective Subjective Remarks Pt feels much better now that he has diuresed, reasonable afib rates but some evidence of tachy-nelson w/ short pauses at night Objective Medications Current Medications Medications (Trade) Dose Ordered Sig/Masha Route Start Time Stop Time Status Last Admin (NS Flush) 2 ml UNSCH PRN IV FLUSH 11/17/17 04:15 (NS Flush) 2 ml BID IV FLUSH 11/17/17 09:00 11/19/17 21:02 (Zofran Inj) 4 mg Q6H PRN IVP 11/17/17 04:15 (Narcan Inj) 0.4 mg UNSCH PRN IV PUSH 11/17/17 04:15 (Tayler-Colace) 1 tab BID PO 11/17/17 09:00 11/19/17 08:22 (Milk Of Magnesia Liq) 30 ml Q12H PRN PO 11/17/17 04:15 (Senokot) 17.2 mg Q12H PRN PO 11/17/17 04:15 (Dulcolax Supp) 10 mg DAILY PRN RECTAL 11/17/17 04:15 (Lactulose Liq) 30 ml DAILY PRN PO 11/17/17 04:15 (Restoril) 15 mg HS PRN PO 11/17/17 21:30 11/18/17 21:27 (Levaquin) 750 mg DAILY PO 11/19/17 09:00 11/19/17 08:22 (Flagyl) 500 mg Q8HR PO 11/18/17 14:00 11/20/17 05:08 (Eliquis) 5 mg BID PO 11/18/17 13:15 11/19/17 20:56 (Entresto 24-26 Mg) 1 tab BID PO 11/18/17 21:00 11/19/17 20:55 (Coreg) 6.25 mg Q12HR PO 11/19/17 09:00 11/19/17 20:55 (Lasix Inj) 40 mg DAILY IV PUSH 11/19/17 09:00 11/19/17 11:45 (Robitussin Ac 200-20 Mg/10 ml Liq) 10 ml Q4H PRN PO 11/19/17 16:00 11/19/17 20:55 Vital Signs / I&O Vital Signs Date Time Temp Pulse Resp B/P (MAP) Pulse Ox O2 Delivery O2 Flow Rate FiO2 11/20/17 04:00 97.9 82 18 115/54 (74) 92 11/20/17 01:00 68 11/20/17 00:42 89 11/20/17 00:00 97.1 80 18 110/58 (75) 94 11/19/17 20:00 96.9 89 18 111/58 (75) 96 11/19/17 16:00 97.0 79 19 92/66 (75) 95 11/19/17 12:00 96.3 64 19 94/76 (82) 100 11/19/17 08:00 95.7 81 19 113/90 (98) 95 I/O 11/19/17 11/19/17 11/19/17 11/20/17 11/20/17 11/20/17 07:00 15:00 23:00 07:00 15:00 23:00 Intake Total 240 ml 720 ml 240 ml Output Total 300 ml Balance -60 ml 720 ml 240 ml Intake Oral 240 ml 720 ml 240 ml Output Urine Total 300 ml # Voids 5 2 # Bowel Movements 1 0 Physical Exam GENERAL: This is a well-nourished, well-developed patient, in no apparent distress. CARDIOVASCULAR: Regular rate and irregular rhythm without murmurs, gallops, or rubs. RESPIRATORY: Clear to auscultation. Breath sounds equal bilaterally. No wheezes , rales, or rhonchi. GASTROINTESTINAL: slightly distended MUSCULOSKELETAL: Extremities without clubbing, cyanosis, or edema. NEURO: Alert & Oriented x4 to person, place, time, situation. Moves all ext x4 Laboratory Laboratory Tests Test 11/19/17 11:35 11/20/17 06:53 Blood Urea Nitrogen 16 MG/DL Creatinine 1.18 MG/DL Random Glucose 110 MG/DL Calcium Level 8.8 MG/DL Sodium Level 141 MEQ/L Potassium Level 4.1 MEQ/L Chloride Level 105 MEQ/L Carbon Dioxide Level 30.3 MEQ/L Anion Gap 6 MEQ/L Estimat Glomerular Filtration Rate 64 ML/MIN Imaging Last Impressions Myocardial Perfusion Scan Nuc Med 11/19/17 0000 Signed Impressions: Service Date/Time: Sunday, November 19, 2017 09:02 - CONCLUSION: 1. No significant stress induced ischemia or infarction. 2. Diffuse mild global hypokinesia with EF of 45%%. RISK CATEGORY: Intermediate (1-3%% Annual Mortality Rate) Bassam Roman MD Hepatobiliary Scan Nuclear Medicine 11/17/17 0942 Signed Impressions: Service Date/Time: Friday, November 17, 2017 12:44 - CONCLUSION: Borderline gallbladder ejection fraction. Otherwise within normal limits. Abnormal ejection fraction can be seen with chronic cholecystitis. Eric Henson MD Gall Bladder Ultrasound 11/17/17 0125 Signed Impressions: Service Date/Time: Friday, November 17, 2017 02:06 - CONCLUSION: Marked gallbladder wall thickening. No stones or evidence of biliary obstruction. All Camacho MD CT Angiography 11/16/172302 Signed Impressions: Service Date/Time: Friday, November 17, 2017 00:19 - CONCLUSION: 1. No pulmonary embolus or other acute cardiopulmonary disease demonstrated. 2. Pericardial calcification, usually the sequela of previous pericarditis. There does seem to be some associated mild bandlike mass effect on the heart, especially the right atrium, for example series 301 image 84. No significant pericardial effusion demonstrated to suggest acute pericarditis. All Camacho MD Abdomen/Pelvis CT 11/16/172302 Signed Impressions: Service Date/Time: Friday, November 17, 2017 00:19 - CONCLUSION: CT findings of acute cholecystitis in the proper clinical setting. No other acute abnormalities are demonstrated. There is a nonobstructing stone of the right kidney. The appendix is normal. All Camacho MD Chest X-Ray 11/16/17 4534 Signed Impressions: Service Date/Time: Thursday, November 16, 2017 22:13 - CONCLUSION: The lungs are clear. Francisco Kapadia MD Assessment and Plan Problem List: (1) Cardiomyopathy ICD Codes: I42.9 - Cardiomyopathy, unspecified Plan: Non-ischemic by nuclear; probably tachycardic and potentially improved given 45% LVEF according to nuclear stress; will confirm improvement w/ limited echo today; if LVEF truly above 35% will d/c life-vest order; continue coreg/ entresto (2) Acute systolic CHF (congestive heart failure) ICD Codes: I50.21 - Acute systolic (congestive) heart failure Plan: Improving, will give another day of IV lasix (3) Atrial fibrillation ICD Codes: I48.91 - Unspecified atrial fibrillation Plan: rates about as good as we can get given nelson at night; will likely need sleep study as outpt. Chads-vas 1-2 for HTN/ possible chf; apparently no need for surgery so will initiate eliquis 5mg bid (4) Fluid retention ICD Codes: R60.9 - Edema, unspecified Plan: improving w/ lasix (5) Acute cholecystitis ICD Codes: K81.0 - Acute cholecystitis Status: Acute Plan: no plan for surgery per surgical notes. Assessment and Plan If LVEF truly improved and pt feels well tomorrow, could potentially be d/c'd home then Problem Qualifiers (1) Cardiomyopathy: Qualified Codes: I42.9 - Cardiomyopathy, unspecified Earl Guillermo MD Nov 20, 2017 07:47
[2017-11-20 07:50] LABS: BICARBONATE 28.1 MEQ/L (21.0-32.0); CALCIUM 8.7 MG/DL (8.5-10.1); CREATININE 1.22 MG/DL (0.60-1.30)
--- NOTE | 2017-11-20 08:08 | HHI.PR ---
Subjective Remarks He is resting quietly in bed at this time. He has had medications adjusted by Cardiology and appears to be with good tolerance. He denies any new adverse changes. I appreciate the note as per Cardiology. Objective - Vital Signs Date Time Temp Pulse Resp B/P (MAP) Pulse Ox O2 Delivery O2 Flow Rate FiO2 11/20/17 04:00 97.9 82 18 115/54 (74) 92 11/20/17 01:00 68 11/20/17 00:42 89 11/20/17 00:00 97.1 80 18 110/58 (75) 94 11/19/17 20:00 96.9 89 18 111/58 (75) 96 11/19/17 16:00 97.0 79 19 92/66 (75) 95 11/19/17 12:00 96.3 64 19 94/76 (82) 100 I/O 11/19/17 11/19/17 11/19/17 11/20/17 11/20/17 11/20/17 07:00 15:00 23:00 07:00 15:00 23:00 Intake Total 240 ml 720 ml 240 ml Output Total 300 ml Balance -60 ml 720 ml 240 ml Intake Oral 240 ml 720 ml 240 ml Output Urine Total 300 ml # Voids 5 2 # Bowel Movements 1 0 Result Diagram: 11/18/17 0708 11/20/17 0653 Objective Remarks GENERAL: Alert and with less complaint of shortness of breath. SKIN: Warm and dry. HEAD: Normocephalic. EYES: No scleral icterus. No injection or drainage. NECK: Supple, trachea midline. No JVD or lymphadenopathy. CARDIOVASCULAR: Regular rate and rhythm without murmurs, gallops, or rubs. RESPIRATORY: Breath sounds equal bilaterally. No accessory muscle use. GASTROINTESTINAL: Abdomen soft, non-tender, nondistended. MUSCULOSKELETAL: No cyanosis. Mild edema of the lower limbs. BACK: Nontender without obvious deformity. No CVA tenderness. A/P Assessment and Plan ASSESSMENT 1. Acute Acalculus Cholecystitis. 2. New Atrial Fibrillation with Rapid Ventricular Response. 3. Possible New Congestive Heart Failure with Peripheral Edema. 4. Hypertension. 5. Hyperlipidemia. 6. Hemochromatosis. 7. Osteoarthritis. PLAN 1. Continue with the current medication regimen. 2. General Surgery disposition noted. 3. Cardiology follows.. 4. Activity as tolerated. 5. Continue intravenous antibiotics. 6. Follow up laboratory assessment. 7. DVT and PE prophylaxis. Kevyn Proctor MD Nov 20, 2017 08:08
[2017-11-20] MEDS: APIXABAN 5 MG TABLET PO SCH ×2 (08:36→20:36)
[2017-11-20] MEDS: CARVEDILOL 6.25 MG TAB PO SCH ×2 (08:36→20:37)
[2017-11-20] MEDS: LEVOFLOXACIN 750 MG TAB PO SCH (08:36)
[2017-11-20] MEDS: SACUBITRIL/VALSARTAN 24 MG-26 MG TAB PO SCH ×2 (08:36→20:37)
[2017-11-20] MEDS: FUROSEMIDE 40 MG/4 ML VIAL IV PUSH SCH (08:37)
[2017-11-20] MEDS: DOCUSATE SODIUM 50 MG/SENNA 8.6 MG TAB PO SCH ×2 (08:37→20:40)
[2017-11-20] MEDS: SODIUM CHLORIDE 0.9% FLUSH 10 ML FLUSH IV FLUSH SCH ×2 (08:37→20:40)
[2017-11-20] MEDS ORDERED: DEXAMETHASONE SOD PHOS 4 MG/ML VIAL IV PUSH ONE (11:15)
--- NOTE | 2017-11-20 18:22 | ECHRPT ---
Indication: EF assessment of CHF CONCLUSIONS Normal left ventricular size. Mild concentric left ventricular hypertrophy. The left ventricular systolic function is moderately reduced with an estimated ejection fraction in the range of 35-40%. There is abnormal septal motion. The left atrial size is mildly dilated. The right atrial size is mildly dilated. Trace mitral valve regurgitation. There is trace tricuspid valve regurgitation. The estimated pulmonary arterial pressure is 35 mmHg. BP: 115 / 54 HR: 82 Rhythm: Atrial fibrillation, Atrial flut ter MEASUREMENTS (Male / Female) Normal Values Technical Quality:Fair 2D ECHO LV Diastolic Diameter PLAX 4.5 cm 4.2 - 5.9 / 3.9 - 5.3 cm LV Systolic Diameter PLAX 3.9 cm IVS Diastolic Thickness 1.0 cm 0.6 - 1.0 / 0.6 - 0.9 cm LVPW Diastolic Thickness 1.0 cm 0.6 - 1.0 / 0.6 - 0.9 cm LV Relative Wall Thickness 0.5 RV Internal Dim ED PLAX 2.3 cm LVOT Diameter 2.2 cm Aortic Root Diameter 3.4 cm LA Systolic Diameter LX 4.2 cm 3.0 - 4.0 / 2.7 - 3.8 cm DOPPLER AV Peak Velocity 108.0 cm/s AV Peak Gradient 4.7 mmHg AV Mean Gradient 3.0 mmHg AV Velocity Time Integral 18.6 cm LVOT Peak Velocity 43.6 cm/s LVOT Peak Gradient 0.8 mmHg LVOT Velocity Time Integral 8.5 cm AV Area Cont Eq vti 1.7 cm AV Area Cont Eq pk 1.5 cm Mitral E Point Velocity 77.9 cm/s TR Peak Velocity 251.0 cm/s TR Peak Gradient 25.0 mmHg Right Atrial Pressure 10.0 mmHg Pulmonary Artery Systolic Pressu 35.2 mmHg Right Ventricular Systolic Press 35.2 mmHg FINDINGS LEFT VENTRICLE Normal left ventricular size. Mild concentric left ventricular hypertrophy. The left ventricular systolic function is moderately reduced with an estimated ejection fraction in the range of 35-40%. There is abnormal septal motion. RIGHT VENTRICLE Normal right ventricular size and systolic function. LEFT ATRIUM The left atrial size is mildly dilated. RIGHT ATRIUM The right atrial size is mildly dilated. ATRIAL SEPTUM No atrial level shunt is demonstrated by color flow Doppler interrogation. AORTA The aortic root and proximal ascending aorta are not well visualized. MITRAL VALVE Trace mitral valve regurgitation. AORTIC VALVE Trileaflet aortic valve. No aortic valve stenosis or regurgitation. TRICUSPID VALVE There is trace tricuspid valve regurgitation. The estimated pulmonary arterial pressure is 35.2 mmHg. PULMONARY VALVE The pulmonary valve is not well visualized. VESSELS The inferior vena cava is normal in size. PERICARDIUM No pericardial effusion. Heath Champagne MD, FACC (Electronically Signed) Final Date:20 November 2017 18:20
[2017-11-20] MEDS: guaiFENesin/CODEINE SYRUP 200 MG/20 MG/10 ML CUP PO PRN (20:37)
[2017-11-20] MEDS: TEMAZEPAM 15 MG CAP PO PRN (23:42)
[2017-11-21] VITALS: BP 107/65; PULSE 76; RESP 18; TEMP 97.6; O2SAT 95
[2017-11-21 00:40] VITALS: PULSE 134
[2017-11-21 04:00] VITALS: BP 105/73; PULSE 86; RESP 18; TEMP 96.4; O2SAT 95
[2017-11-21] MEDS: metroNIDAZOLE 500 MG TAB PO SCH ×2 (05:09→13:49)
[2017-11-21 07:59] LABS: CALCIUM 8.5 MG/DL (8.5-10.1); CREATININE 1.13 MG/DL (0.60-1.30)
[2017-11-21 08:00] VITALS: BP 105/64; PULSE 90; RESP 17; TEMP 96.4; O2SAT 96
[2017-11-21] MEDS: LEVOFLOXACIN 750 MG TAB PO SCH (08:06)
[2017-11-21] MEDS: APIXABAN 5 MG TABLET PO SCH (08:06)
[2017-11-21] MEDS: CARVEDILOL 6.25 MG TAB PO SCH (08:06)
[2017-11-21] MEDS: SACUBITRIL/VALSARTAN 24 MG-26 MG TAB PO SCH (08:06)
[2017-11-21] MEDS: DOCUSATE SODIUM 50 MG/SENNA 8.6 MG TAB PO SCH (08:06)
[2017-11-21] MEDS: FUROSEMIDE 40 MG/4 ML VIAL IV PUSH SCH (08:07)
[2017-11-21] MEDS: SODIUM CHLORIDE 0.9% FLUSH 10 ML FLUSH IV FLUSH SCH (08:07)
[2017-11-21] MEDS: guaiFENesin/CODEINE SYRUP 200 MG/20 MG/10 ML CUP PO PRN (08:18)
--- NOTE | 2017-11-21 09:14 | HHI.PR ---
Subjective Remarks He states that he is feeling well, except he got a bit lightheaded earlier for a brief period. It resolved over a short period of 15-20 seconds. He otherwise appears to be with good tolerance of the current medication regimen. Cardiology has given final disposition. Objective - Vital Signs Date Time Temp Pulse Resp B/P (MAP) Pulse Ox O2 Delivery O2 Flow Rate FiO2 11/21/17 08:00 96.4 90 17 105/64 (78) 96 11/21/17 04:00 96.4 86 18 105/73 (84) 95 11/21/17 00:40 134 11/21/17 00:00 97.6 76 18 107/65 (79) 95 11/20/17 20:00 97.7 100 18 103/68 (80) 95 11/20/17 16:00 96.8 83 20 114/74 (87) 92 11/20/17 12:00 96.0 84 17 99/64 (76) 97 I/O 11/20/17 11/20/17 11/20/17 11/21/17 11/21/17 11/21/17 07:00 15:00 23:00 07:00 15:00 23:00 Intake Total 240 ml 700 ml 240 ml Balance 240 ml 700 ml 240 ml Intake Oral 240 ml 700 ml 240 ml # Voids 2 5 2 # Bowel Movements 0 1 0 Result Diagram: 11/18/17 0708 11/21/17 0600 Objective Remarks GENERAL: No acute distress. SKIN: Warm and dry. HEAD: Normocephalic. EYES: No scleral icterus. No injection or drainage. NECK: Supple, trachea midline. No JVD or lymphadenopathy. CARDIOVASCULAR: Regular rate and rhythm without murmurs, gallops or rubs. RESPIRATORY: Breath sounds equal bilaterally. No accessory muscle use. GASTROINTESTINAL: Abdomen soft, non-tender and nondistended. MUSCULOSKELETAL: No cyanosis or edema. BACK: Nontender without obvious deformity. No CVA tenderness. A/P Assessment and Plan ASSESSMENT 1. Acute Acalculus Cholecystitis. 2. New Atrial Fibrillation with Rapid Ventricular Response. 3. New Acute Systolic Congestive Heart Failure. 4. Nonischemic Cardiomyopathy. 5. Hypertension. 6. Hyperlipidemia. 7. Hemochromatosis. 8. Osteoarthritis. PLAN 1. Continue with the current medication regimen. 2. General Surgery and Cardiology dispositions are given. 3. Convert to oral antibiotics. 4. Discharge Planning. 5. DVT and PE prophylaxis. Kevyn Proctor MD Nov 21, 2017 09:14
--- NOTE | 2017-11-21 10:09 | PD.CARD.PN ---
Subjective Subjective Remarks Pt feels much better now that he has diuresed, good afib rates; he feels ready to go home. Objective Medications Current Medications Medications (Trade) Dose Ordered Sig/Masha Route Start Time Stop Time Status Last Admin (NS Flush) 2 ml UNSCH PRN IV FLUSH 11/17/17 04:15 11/20/17 11:36 (NS Flush) 2 ml BID IV FLUSH 11/17/17 09:00 11/21/17 08:07 (Zofran Inj) 4 mg Q6H PRN IVP 11/17/17 04:15 (Narcan Inj) 0.4 mg UNSCH PRN IV PUSH 11/17/17 04:15 (Tayler-Colace) 1 tab BID PO 11/17/17 09:00 11/19/17 08:22 (Milk Of Magnesia Liq) 30 ml Q12H PRN PO 11/17/17 04:15 (Senokot) 17.2 mg Q12H PRN PO 11/17/17 04:15 (Dulcolax Supp) 10 mg DAILY PRN RECTAL 11/17/17 04:15 (Lactulose Liq) 30 ml DAILY PRN PO 11/17/17 04:15 (Restoril) 15 mg HS PRN PO 11/17/17 21:30 11/20/17 23:42 (Levaquin) 750 mg DAILY PO 11/19/17 09:00 11/21/17 08:06 (Flagyl) 500 mg Q8HR PO 11/18/17 14:00 11/21/17 05:09 (Eliquis) 5 mg BID PO 11/18/17 13:15 11/21/17 08:06 (Entresto 24-26 Mg) 1 tab BID PO 11/18/17 21:00 11/21/17 08:06 (Coreg) 6.25 mg Q12HR PO 11/19/17 09:00 11/21/17 08:06 (Robitussin Ac 200-20 Mg/10 ml Liq) 10 ml Q4H PRN PO 11/19/17 16:00 11/21/17 08:18 (Lasix) 20 mg DAILY PO 11/22/17 09:00 Vital Signs / I&O Vital Signs Date Time Temp Pulse Resp B/P (MAP) Pulse Ox O2 Delivery O2 Flow Rate FiO2 3/14/18 08:00 96.4 90 17 105/64 (78) 96 11/21/17 04:00 96.4 86 18 105/73 (84) 95 11/21/17 00:40 134 11/21/17 00:00 97.6 76 18 107/65 (79) 95 11/20/17 20:00 97.7 100 18 103/68 (80) 95 11/20/17 16:00 96.8 83 20 114/74 (87) 92 11/20/17 12:00 96.0 84 17 99/64 (76) 97 I/O 11/20/17 11/20/17 11/20/17 11/21/17 11/21/17 11/21/17 07:00 15:00 23:00 07:00 15:00 23:00 Intake Total 240 ml 700 ml 240 ml Balance 240 ml 700 ml 240 ml Intake Oral 240 ml 700 ml 240 ml # Voids 2 5 2 # Bowel Movements 0 1 0 Physical Exam GENERAL: This is a well-nourished, well-developed patient, in no apparent distress. CARDIOVASCULAR: Regular rate and irregular rhythm without murmurs, gallops, or rubs. RESPIRATORY: Clear to auscultation. Breath sounds equal bilaterally. No wheezes , rales, or rhonchi. GASTROINTESTINAL: slightly distended MUSCULOSKELETAL: Extremities without clubbing, cyanosis, or edema. NEURO: Alert & Oriented x4 to person, place, time, situation. Moves all ext x4 Laboratory Laboratory Tests Test 11/21/17 06:00 Blood Urea Nitrogen 22 MG/DL Creatinine 1.13 MG/DL Random Glucose 99 MG/DL Calcium Level 8.5 MG/DL Sodium Level 142 MEQ/L Potassium Level 4.0 MEQ/L Chloride Level 107 MEQ/L Carbon Dioxide Level 28.0 MEQ/L Anion Gap 7 MEQ/L Estimat Glomerular Filtration Rate 67 ML/MIN Imaging Last Impressions Myocardial Perfusion Scan Nuc Med 11/19/17 0000 Signed Impressions: Service Date/Time: Sunday, November 19, 2017 09:02 - CONCLUSION: 1. No significant stress induced ischemia or infarction. 2. Diffuse mild global hypokinesia with EF of 45%%. RISK CATEGORY: Intermediate (1-3%% Annual Mortality Rate) Bassam Roman MD Hepatobiliary Scan Nuclear Medicine 11/17/17 0942 Signed Impressions: Service Date/Time: Friday, November 17, 2017 12:44 - CONCLUSION: Borderline gallbladder ejection fraction. Otherwise within normal limits. Abnormal ejection fraction can be seen with chronic cholecystitis. Eric Henson MD Gall Bladder Ultrasound 11/17/17 0125 Signed Impressions: Service Date/Time: Friday, November 17, 2017 02:06 - CONCLUSION: Marked gallbladder wall thickening. No stones or evidence of biliary obstruction. All Camacho MD CT Angiography 11/16/172302 Signed Impressions: Service Date/Time: Friday, November 17, 2017 00:19 - CONCLUSION: 1. No pulmonary embolus or other acute cardiopulmonary disease demonstrated. 2. Pericardial calcification, usually the sequela of previous pericarditis. There does seem to be some associated mild bandlike mass effect on the heart, especially the right atrium, for example series 301 image 84. No significant pericardial effusion demonstrated to suggest acute pericarditis. All Camacho MD Abdomen/Pelvis CT 11/16/172302 Signed Impressions: Service Date/Time: Friday, November 17, 2017 00:19 - CONCLUSION: CT findings of acute cholecystitis in the proper clinical setting. No other acute abnormalities are demonstrated. There is a nonobstructing stone of the right kidney. The appendix is normal. All Camacho MD Chest X-Ray 11/16/17 Signed Impressions: Service Date/Time: Thursday, November 16, 2017 22:13 - CONCLUSION: The lungs are clear. Francisco Kapadia MD Assessment and Plan Problem List: (1) Cardiomyopathy ICD Codes: I42.9 - Cardiomyopathy, unspecified Plan: Non-ischemic by nuclear; LVEF now improved to > 35% so will hold off on life-vest; on coreg/entresto (2) Acute systolic CHF (congestive heart failure) ICD Codes: I50.21 - Acute systolic (congestive) heart failure Plan: compensated on oral lasix (3) Atrial fibrillation ICD Codes: I48.91 - Unspecified atrial fibrillation Plan: rates about as good as we can get given nelson at night; will likely need sleep study as outpt/on eliquis (4) Fluid retention ICD Codes: R60.9 - Edema, unspecified Plan: improving w/ lasix (5) Acute cholecystitis ICD Codes: K81.0 - Acute cholecystitis Status: Acute Plan: no plan for surgery per surgical notes. Assessment and Plan Ok to d/c home from my standpoint; will see him in my office in 1-2 weeks. Problem Qualifiers (1) Cardiomyopathy: Qualified Codes: I42.9 - Cardiomyopathy, unspecified Earl Guillermo MD Nov 21, 2017 10:09
[2017-11-21 12:00] VITALS: BP 121/73; PULSE 87; RESP 19; TEMP 96.6; O2SAT 97
[2017-11-21] MEDS ORDERED: CARV6.25 PO (13:27)
[2017-11-21] MEDS ORDERED: SACU1TAB PO (13:27)
[2017-11-21] MEDS ORDERED: METR-1 PO (13:27)
[2017-11-21] MEDS ORDERED: LEVA750T9 PO (13:27)
[2017-11-21] MEDS ORDERED: APIX5TAB PO (13:27)
[2017-11-21] MEDS ORDERED: FURO20TA PO (13:27)
[2017-11-22] MEDS ORDERED: FUROSEMIDE 20 MG TAB PO SCH (09:00)
== END 2017-11-21 14:51 | disposition home or self-care (01) | DRG 444 ==
LOC: NEPD 19:32 → NEDA 11-17 01:41 → N07B 11-17 04:12
PROVIDERS: ADMIT Internal Medicine; ATTEND Internal Medicine
DX: K81.0 Acute cholecystitis (principal); I11.0 Hypertensive heart disease with heart failure; I50.21 Acute systolic (congestive) heart failure; I48.91 Unspecified atrial fibrillation; I42.9 Cardiomyopathy, unspecified; E78.5 Hyperlipidemia, unspecified; E83.119 Hemochromatosis, unspecified; M19.90 Unspecified osteoarthritis, unspecified site; Z87.891 Personal history of nicotine dependence
CPT/HCPCS: 71045; 71275; 74177; 76705; 78227; 78452; 80048; 80053; 82140; 83690; 83735; 83880; 84145; 84443; 85025; 85610; 85730; 93005; 93017; 93306; 93308; 96365; 96375; A9502; A9537; J1100; J1940; J1956; J2543; J2785; J2805; J3480; J7030; Q9967